=== PATIENT | male | born 1970 | race Caucasian/White ===

== ENCOUNTER 2024-07-30 12:16 | Outpatient (CLI) | payer MEDICARE, SELFPAY ==
--- OUTSIDE RECORDS SUMMARY | 2024-07-30 12:22 | XMS_ITS | Data Portability ---
Author Organization [place] [facility] Address [address] [place] [address] Assessment Encounter Date Assessment Date Assessment LastModified by Organization Details LastModified Time 11/05/2022 11/05/2022 Patient is a pleasant 52 yo male who presents today for intrathecal pain pump refill and reprogram. Patient is currently being managed with Dilaudid 0.28mg/day. Patient denies any side effects from the medication. Patient rates pain a 7 out of 10. I increased the patient's pump concentration today to Dilaudid 3mg/mL. The infusion rate was continued to Dilaudid 0.28mg/day. --- Plan: Patient lives in [place], [place]. He says that he needs to drive more than 2 hours to our clinic. We talked to him about home refill with [facility]. He is interested in this. We will send a referral today to [facility]. If for some reason his insurance won't approve home refill, we can schedule him in [place] or [place] for pump refill. We will see the patient back in the clinic at the next intrathecal refill. Patient has been instructed to contact the clinic with any concerns before the next appointment. This note was dictated using voice recognition software and may contain errors or omissions. [email or web address] Not available 11/05/2022 11:39:52 04/24/2023 04/24/2023 This is a pleasa nt 53-year-old male that presents to clinic today for follow-up on his intrathecal pain pump. We are currently treating patient for degenerative Lumbar vertebral disc and low back pain with lumbar radiculopathy. Patient does have an intrathecal pain pump device. Patient is being managed with hydromorphone at 0.35 mg/day. Patient's intrathecal pain pump device is approximately 6 years old. Patient states that he has Noticed that his intrathecal pain pump device sometimes would not cover his pain. Today he is rating his pain a 5 out of 10. He states that if he has to drive or move for very long periods of times it will cause an increase in his pain. They did do an increase on his intrathecal pain pump at his last home refill. Patient states that hat that has helped. --- Plan: We did interrogate patient's intrathecal pain pump device today we did not make any changes. We believe that patient's intrathecal pain pump device is at its end-of-life. Patient does have a [employer] pain pump device. [employer] did issue a statement saying that their devices could suddenly stop working which could cause a life-threatening condition with patient including seizures and possible . We will submit today for a change out of his intrathecal pain pump device. Risk versus benefits of the procedure was explained to patient. Patient is not on any blood thinners at this time. Patient verbalized understanding agreeable with this plan of care. Patient has been instructed to contact the clinic with any concerns before the next appointment. This note was dictated using voice recognition software and may contain errors or omissions. [email or web address] Not available 04/24/2023 13:10:35 11/04/2023 11/04/2023 Patient is a pleasant 53-year-old male who presents today for 6-month follow-up. Today he rates his pain at 4 out of 10. Patient denies any new trauma or injury. Patient does currently have his intrathecal pump with a daily dose of Dilaudid 0.35 mg/day. He states that it does help however feels like it could use some additional adjustment. Patient states the drive over can obviously aggravate his overall symptoms. Patient is filled by [facility] home refill and states he is scheduled for a refill at the end of this month. Patient does still have his flow[employer]ix pump and states that he has not been given a surgery date to have this replaced. Patient states that he is working fine however they had already discussed about having it changed counts but did state that they were going to wait and do patients that it had the pumps longer and since he was not having any issues. Patient states he is still agreeable to this plan of care. His Anant is [id number]. Patient is prescribed gabapentin from an outside provider. His Anant has been reviewed Patient tolerated his intrathecal increase with no complications and was discharged neurologically intact. With the updated change to his dosage his next refill date is on or before November 27. Patient was counseled that we will see about still planning on replacing his pump however since he is not having any issues with that we will reach out to him at a later date regarding this. Patient is agreeable. Patient will return to clinic in 6 months for reevaluation of symptoms and plan of care. Patient has been instructed to contact the clinic with any concerns before the next appointment. Dr. Ryan has reviewed this note and agrees with this plan of care. This note was dictated using voice recognition software and may contain errors or omissions. [email or web address] Not available 11/04/2023 15:29:50 02/23/2024 02/23/[address] [facility] 54-year-old male who presents today for intrathecal pain pump refill.We are currently treating this patient for degeneration of the lumbar intervertebral disc, low back pain and lumbar radiculopathy.Tolawrence iraheta, patient is rating his pain a 7 out of 10. He states since last visit he has had increasing pain in his low back with radicular symptoms into the bilateral legs. Patient states he has had his Flow[employer] pump for around 6 years, he is thinking he needs to schedule a switch out.We are currently managing this patient with intrathecal Dilaudid 3 mg/mL at a daily rate of 0.42 mg/day. Patient is requesting an increase today. Patient is medically managed with gabapentin 300 mg twice daily, he is prescribed this from an outside clinic. [facility] #[id number], drug screen from 11-04-2023 was reviewed and was appropriate. Patient underwent random urine drug screen here in office today. Plan: Patient tolerated intrathecal pain pump refill well today. He was discharged neurovascularly intact with antalgic gait. He had motor strength of 5 out of 5 in the lower extremities, no gross sensory deficits appreciated. We did increase his intrathecal Dilaudid 3 mg/mL to a daily rate of 0.5 mg/day. We will see patient in office for intrathecal pain pump refill on or before his next refill date of May 21, 2024. Patient would like to be scheduled for intrathecal pain pump change out in [place]. We have sent his contact information to Shannan to have him scheduled. Will follow up on this at his next appointment. We have instructed patient to contact our office if he has any further questions or concerns. [email or web address] Not available 02/23/2024 18:10:40 05/25/2024 05/25/[address] [facility] 54-year-old male that presents today for intrathecal pain pump refill. We are currently treating his patient for degenerative disc disease of lumbar spine with radiculopathy. Today patient is rating his pain a 6 out of 10,This is improvement from his last visit with a pain level of 7 out of 10. Patient denies changes to location or intensity of his pain. He denies any new injury or hospitalization. He is requesting that we increase his pump as the last increase was helpful but he is still having some pain. We are currently managing him with intrathecal Dilaudid 3 mg/mL at a daily rate of 0.42 mg/day. Patient denies any side effects associated with this medication. Again he is requesting an increase. Patient is scheduled for replacement of his nonfunctioning intrathecal pain pump device. He is requesting that this is performed in [place]. [facility] #[id number], drug screen from 02/23/2024 was reviewed and was appropriate. Patient did undergo updated drug screen in office today. A screen and reflex to confirmation was ordered as random testing at random intervals based on medical necessity guidance criteria. Urine drug screen is needed to verify patient's compliance with the pain contract, this will be ordered due to treatments of chronic pain with a potentially abused medication. Plan: I refilled patient's intrathecal pain pump device, he tolerated this procedure well without any complications. Patient was discharged neurovascularly intact with an antalgic gait. Patient had 5/5 motor strength in the lower extremities, no gross sensory deficits appreciated. We did increase his intrathecal Dilaudid 3 mg/mL to a daily rate of 0.55 mg/day. We will see patient back on or before his low alarm date of August 14, 2024.Dr. Ryan has reviewed this chart and agrees with this plan of care. This note was dictated with voice recognition software and may contain errors or omission [email or web address] Not available 06/24/2024 11:30:37 Plan of Treatment Reminders Order Date Submit Date Provider Last Modified By Organization Details Last Modified Time Details Appointments PUMP REFILL 2024 01:30P M CARLITO RIBEIRO Not available Not available Not available Lab None recorded. Referral None recorded. Procedures intrathec al pump refill (PROC) 2024 025 [email or web address] Not available 05/25/2024 13:50:32 intrathec al pump adjustmen t (PROC) 2024 025 [email or web address] Not available 05/25/2024 13:50:50 intrathec al pump refill (PROC) 2023 024 [email or web address] Not available 02/24/2024 12:16:31 intrathec al pump refill (PROC) 2022 023 [email or web address] Not available 11/06/2022 16:10:12 Surgeries replaceme nt of programma ble pump for intrathec al or epidural drug infusion (SURG) 2023 024 [email or web address] Not available 05/08/2023 10:52:04 revision or repositio sandie of tunneled intrathec al or epidural catheter (SURG) 2023 024 [email or web address] Not available 05/08/2023 10:52:05 Imaging None recorded. Medication Orders None recorded. Patient TargetsNo targets recorded. Patient Instructions Encounter Date Encounter Id Patient Instructions Last Modified By Organization Details Last Modified Time 04/24/2023 [id number] back pain: care instructions abux Not available 04/24/2023 22:53:33 learning about relief for back pain abux Not available 04/24/2023 22:53:33 Reason for Referral None Reported. Results Created Date Observation Date Name Description Value Unit Range Abnormal Flag Note LastModifiedBy Organization Detail LastModifiedTime Result Notes None recorded. Problems Name Problem SNOMED Code Status Onset Date Resolution Date Notes Provider Name and Address Organization Details Recorded Time Degeneration of lumbar intervertebral disc 83057465 Active 2019 Armen Ryan MD [address], [address], [place] [facility] 0 14:12:52 Lumbar radiculopathy 105183834 Active 2019 Armen Ryan MD [address], [address], [place] [facility] 0 14:12:53 Low back pain 593465684 Active 2019 Armen Ryan MD [address], [address], [place] [facility] 0 14:12:55 Problem Notes None recorded. Procedures Surgical History Date Name Laterality Status Provider Name and Address Organization Details Recorded Time 5 Pump Refill completed CARLITO RIBEIRO [address] [facility],[address], [address], [place] [facility] 05/25/2024 13:26:06 4 Pump Refill completed CARLITO RIBEIRO [address], [address], [place] [facility] 02/23/2024 15:25:53 4 PUMP ADJUSTMENT completed Katherin Devlin NP [address], [address], [place] [facility] 11/04/2023 15:27:15 3 Pump Refill completed Brett Carvalho [address], [address], [place] [facility] 11/05/2022 11:33:06 3 Pump Refill LENA completed Brett Cravalho [address], [address], [place] [facility] 09/17/2022 11:56:20 3 Pump Refill completed Katherin Devlin NP [address], [address], [place] [facility] 07/23/2022 09:28:49 3 Pump Refill cancelled Troy Gómez [place] [facility] 07/03/2022 15:13:09 3 Pump Refill completed Armen Ryan MD [address], [address], [place] [facility] 05/21/2022 16:21:26 3 Pump Refill cancelled Troy Gómez [place] [facility] 05/06/2022 13:21:48 2 Pump Refill completed Armen Ryan MD [address], [place], [address], [place] [facility] 03/26/2022 23:22:53 2 Pump Refill active Juana Jonestt [place] [facility] 03/11/2022 09:37:20 2 Pump Refill completed Armen Ryan MD [address], [place], [address], [place] [facility] 01/22/2022 15:45:09 2 Pump Refill cancelled Negar Lyons [place] [facility] 01/07/2022 15:39:16 2 Pump Refill completed Armen Ryan MD [address], [place], [address], [place] [facility] 11/13/2021 09:30:43 2 Pump Refill completed Armen Ryan MD [address], [place], [address], [place] [facility] 09/04/2021 11:48:36 2 Pump Refill completed Geri Leigh [place] [facility] 06/26/2021 15:07:31 1 Pump Refill completed Armen Ryan MD [address], [place], [address], [place] [facility] 04/10/2021 16:16:52 1 Pump Refill active Georgie Cam [place] [facility] 04/03/2021 07:57:17 1 Pump Refill completed Armen Ryan MD [address], [place], [address], [place] [facility] 01/23/2021 15:47:18 1 Pump Refill completed Sari Sanz [place] [facility] 11/14/2020 13:06:16 1 Pump Refill completed Anastasia Salas [place] [facility] 08/22/2020 13:26:29 1 Pump Refill completed Anastasia Salas [place] [facility] 05/30/2020 14:13:41 1 Pump Refill completed Vikki Juan Jose [place] [facility] 05/16/2020 14:56:14 0 Pump Refill completed Armen Ryan MD [address], [address], [place] [facility] 04/11/2020 14:11:20 0 Pump Refill completed Armen Rayn MD [address] [facility],[address], [address], [place] [facility] 02/01/2020 15:51:30 Imaging Results None recorded. Procedure Notes None recorded. Medical Equipment None Reported. Allergies No known drug allergies Medications Name Sig Start Date Stop Date Status Note LastModified by Organization Details LastModified Time dilaudid 3 Dispense for intrathec al use 2023 active Not Available Not Available Not Avai lable dilaudid 3 Dispense for intrathec al use 2022 active Not Available Not Available Not Avai lable dilaudid 3 Dispense for intrathec al use 2023 active Not Available Not Available Not Avai lable dilaudid 3 DISPENSE IN 20 ML FOR INTRATHEC AL PUMP INFUSION 2022 active Not Available Not Available Not Avai lable dilaudid 3 Dispense for intrathec al use 2023 active Not Available Not Available Not Avai lable dilaudid 3 Dispense for intrathec al use 2023 active Not Available Not Available Not Avai lable dilaudid 3 Dispense for intrathec al use 2024 active Not Available Not Available Not Avai lable celecoxib 200 mg capsule TAKE 1 CAPSULE BY MOUTH DAILY 04/24 completed Not Available Not Available Not Available metformin 500 mg tablet TAKE 1 TABLET BY MOUTH TWICE DAILY 01/27 completed Not Available Not Available Not Available prednisone 10 mg tablet 05/16 completed Not Available Not Available Not Available atorvastati n 20 mg tablet TAKE 1 TABLET BY MOUTH AT BEDTIME active Not Available Not Available No t Available azithromyci n 250 mg tablet TK 2 TS PO ON DAY 1, THEN TK 1 T PO D FOR 4 DAYS 01/27 completed Not Available Not Available Not Available ondansetron HCl 4 mg tablet TAKE 1 TABLET BY MOUTH THREE TIMES DAILY NEEDED FOR NAUSEA 01/27 completed Not Available Not Available Not Available prednisone 20 mg tablet TAKE 1 TABLET BY MOUTH EVERY DAY active Not Available Not Available No t Available sulfamethox azole 800 mg-trimetho prim 160 mg tablet TAKE 1 TABLET BY MOUTH TWICE DAILY FOR 10 DAYS 11/03 completed Not Available Not Available Not Available peg-electro lyte solution 420 gram oral solution active Not Available Not Available Not Available prednisone 10 mg tablets in a dose pack FOLLOW PACKAGE DIRECTION S 01/27 completed Not Available Not Available Not Available amoxicillin 875 mg tablet TAKE 1 TABLET BY MOUTH TWICE DAILY FOR 10 DAYS active Not Available Not Available No t Available pravastatin 10 mg tablet TAKE 1 TABLET BY MOUTH AT BEDTIME active Not Available Not Available No t Available tamsulosin 0.4 mg capsule TAKE 1 CAPSULE BY MOUTH EVERY DAY active Not Available Not Available No t Available cephalexin 500 mg capsule active Not Available Not Available Not Available gabapentin 300 mg capsule active Not Available Not Available Not Available ergocalcife rol (vitamin D2) 1,250 mcg (50,000 unit) capsule TAKE 1 CAPSULE BY MOUTH EVERY WEEK active Not Available Not Available No t Available methylpredn isolone 4 mg tablets in a dose pack FOLLOW PACKAGE DIRECTION S 11/05 completed Not Available Not Available Not Available ondansetron 4 mg disintegrat ing tablet DISSOLVE 1 TABLET ON THE TONGUE TWICE DAILY active Not Available Not Available No t Available fluticasone propionate 50 mcg/actuati on nasal spray,suspe nsion SHAKE LIQUID AND USE 2 SPRAYS IN EACH NOSTRIL TWICE DAILY active Not Available Not Available No t Available amoxicillin 875 mg-potassiu m clavulanate 125 mg tablet TAKE 1 TABLET BY MOUTH TWICE DAILY FOR 10 DAYS active Not Available Not Available No t Available metformin ER 750 mg tablet,exte nded release 24 hr TAKE 1 TABLET BY MOUTH EVERY DAY active Not Available Not Available No t Available Loratadine- D 10 mg-240 mg tablet,exte nded release 24 hr TAKE 1 TABLET BY MOUTH DAILY. active Not Available Not Available No t Available rosuvastati n 5 mg tablet TAKE 1 TABLET BY MOUTH AT BEDTIME active Not Available Not Available No t Available rosuvastati n 10 mg tablet active Not Available Not Available Not Available ibuprofen active Not Available Not Birgit ilable Not Available levocetiriz ine 5 mg tablet active Not Available Not Available Not Available TRUEplus Lancets 33 gauge USE TO CHECK BLOOD SUGAR TWICE DAILY 05/16 completed Not Available Not Available Not Available Super Thin Lancets 28 gauge USE 1 DEVICE TWICE DAILY. active Not Available Not Available No t Available True Metrix Glucose Test Strip USE TO CHECK BLOOD SUGAR TWICE DAILY active Not Available Not Available No t Available True Metrix Glucose Meter USE TO CHECK BLOOD SUGAR TWICE DAILY 05/16 completed Not Available Not Available Not Available Vitals Date Recorded Body height Body mass index (BMI) Body weight Oxygen saturation Oxygen saturation in Arterial blood by Pulse oximetry Pain severity - 0-10 verbal numeric rating [Score] - Reported Heart rate Systolic blood pressure Diastolic blood pressure Provider Name and Address Organization Details Last Updated DateTime 3 180.34 cm 18.7 kg/m2 68466.3 8 g 98 % 98 % 6 60 /min 128 mm[Hg] 84 mm[Hg] STEVO VIERA [place] [facility] 3 10:09:59 Date Recorded Body height Heart rate Body mass index (BMI) Body weight Oxygen saturation Oxygen saturation in Arterial blood by Pulse oximetry Pain severity - 0-10 verbal numeric rating [Score] - Reported Systolic blood pressure Diastolic blood pressure Provider Name and Address Organization Details Last Updated DateTime 4 180.34 cm 62 /min 18.7 kg/m2 68312.3 8 g 98 % 98 % 4 126 mm[Hg] 82 mm[Hg] STEVO VIERA [place] [facility] 4 14:16:17 Date Recorded Body height Oxygen saturation Oxygen saturation in Arterial blood by Pulse oximetry Heart rate Body mass index (BMI) Body weight Pain severity - 0-10 verbal numeric rating [Score] - Reported Systolic blood pressure Diastolic blood pressure Provider Name and Address Organization Details Last Updated DateTime 4 180.34 cm 98 % 98 % 66 /min 18.7 kg/m2 22283.3 8 g 7 126 mm[Hg] 82 mm[Hg] STEVO VIERA [place] [facility] 4 14:20:03 Date Recorded Body height Body mass index (BMI) Body weight Heart rate Oxygen saturation Oxygen saturation in Arterial blood by Pulse oximetry Pain severity - 0-10 verbal numeric rating [Score] - Reported Systolic blood pressure Diastolic blood pressure Provider Name and Address Organization Details Last Updated DateTime 5 180.34 cm 18.7 kg/m2 74111.3 8 g 68 /min 98 % 98 % 6 126 mm[Hg] 82 mm[Hg] STEVO VIERA [place] [facility] 5 13:04:03 Social History Question Answer Notes LastModified by Organizat ion Details LastModified Time Tobacco Smoking Status Current Every Day Smoker Juana robles [place] - [facility] 05/30/2020 13:30:49 Do You Have An Advance Directive? Yes Information not available 05/30/2020 What Is Your Level Of Alcohol Consumption? None Information not available 05/30/2020 Auto Related Injury? No Information not available 05/30/2020 What Is Your Level Of Caffeine Consumption? Heavy Information not available 05/30/2020 How Much Tobacco Do You Chew? None Information not available 05/30/2020 In The 14 Days Before Symptom Onset, Have You Had Close Contact With A Laboratory-confir med COVID-19 While That Case Was Ill? No [email or web address] Information not available 11/04/2023 In The 14 Days Before Symptom Onset, Have You Had Close Contact With A Person Who Is Under Investigation For COVID-19 While That Person Was Ill? No [email or web address] Information not available 11/04/2023 Have You Been To An Area Known To Be High Risk For COVID-19? No [email or web address] Information not available 11/04/2023 Are You Currently Employed? No Information not available 05/30/2020 What Type Of Diet Are You Following? REGULAR Information not available 05/30/2020 Which Illicit Or Recreational Drugs Have You Used? None Information not available 05/30/2020 Do You Or Have You Ever Used E-cigarettes Or Vape? Never Used Electronic Cigarettes Information not available 05/30/2020 Which Of Your Hands Is Dominant? Right Information not available 05/30/2020 Live Alone Or With Others? With Others Information not available 05/30/2020 What Was The Date Of Your Most Recent Tobacco Screening? 02/23/2024 [email or web address] Information not available 02/23/2024 At What Age Did You Start Smoking Tobacco? 48 Information not available 05/30/2020 Do You Or Have You Ever Used Smokeless Tobacco? Never Used Smokeless Tobacco Information not available 05/30/2020 How Much Tobacco Do You Smoke? 2 PPD Information not available 05/30/2020 General Stress Level Medium Information not available 05/30/2020 Do You Use Any Illicit Or Recreational Drugs? No [email or web address] Information not available 11/04/2023 How Many Years Have You Smoked Tobacco? 2 Information not available 05/30/2020 Work Related Injury? No Information not available 05/30/2020 Sex: Unknown Functional Status Question Answer Note LastModified by Organization D etails LastModified Time What is your exercise level? None Information not available 05/30/2020 Mental Status None recorded. Family History Relationship Description Onset Age of this Age Resolved Age Notes LastModified by Organization Details LastModified Time Father No current problems or disability Not available 05/30 13:28:52 Mother No current problems or disability Not available 05/30 13:28:52 Medical History Condition Response Coronary Artery Disease N Gout N Hernia N Head Trauma/Injury N Thyroid Problems N Depression N COPD N Anemia N Heart Attack ([place]) N Ulcers Y Diabetes Y Anxiety Disorder N Bleeding Disorder N Arthritis N Tuberculosis N AIDS/HIV N Acid Reflux (GERD) Y Cancer N Stroke N Asthma N Substance Abuse N Back Injury N High Cholesterol N Hepatitis N Liver Disease N Heart Disease N Headaches N Fibromyalgia N Hypertension N Osteoporosis N Kidney Disease N Past Encounters Encounter ID Performer Location Encounter Start Date Encounter Closed Date Diagnosis/Indication Diagnosis SNOMED-CT Code Diagnosis ICD10 Code Diagnosis Note [id number] Armen Ryan MD [place] [facility] [address] [facility] [address] [place] [address] 02/01/2020 14:08:01 02/08/2020 21:20:11 Degeneration of lumbar intervertebral disc 87630240 M51.36 [id number] Armen Ryan MD [place] [facility] [address] [facility],[address] 6 04/11/2020 09:49:36 04/11/2020 14:24:31 Degeneration of lumbar intervertebral disc 22157993 M51.36 Lumbar radiculopathy 128 456117 M54.16 Low back pain 458308507 M54.5 [id number] Vikki Ingram [place] [facility] [address] [facility],[place] [address] 05/16/2020 13:04:23 05/16/2020 14:20:29 Degeneration of lumbar intervertebral disc 61711053 M51.36 Lumbar radiculopathy 128 977345 M54.16 Low back pain [id number] M54.5 455 Anastasia Sharp [facility] Office 101 [facility],[place] [address] 6 05/30/2020 12:38:19 05/31/2020 14:35:19 Degeneration of lumbar intervertebral disc 14640246 M51.36 Lumbar radiculopathy 128 [id number] M54.16 Low back pain 603100693 M54.5 749 Anastasia Salas [place] [facility] 101 [facility],[place] [address] 6 08/22/2020 13:00:02 08/22/2020 15:30:01 Degeneration of lumbar intervertebral disc 85407726 M51.36 Low back pain [id number] M54.5 Lumbar radiculopathy 128 883930 M54.16 1089 Geri Leigh [place] [facility] 101 [facility],[address] 6 11/14/2020 12:35:08 11/14/2020 15:28:57 Lumbar radiculopathy [id number] M54.16 1506 Armen Ryan MD [place] [facility] 101 [facility],[address] 6 01/23/2021 12:55:55 01/23/2021 14:47:37 Degeneration of lumbar intervertebral disc 26916468 M51.36 Low back pain 634946729 M54.50 Lumbar radiculopathy 128 [id number] M54.16 1982 Armen Ryan MD [place] [facility] 101 [facility],[place] [address] [place] [id number] 6 04/10/2021 13:01:47 04/10/2021 13:25:16 Degeneration of lumbar intervertebral disc 37788722 M51.36 Low back pain [id number] M54.50 Lumbar radiculopathy 128 956868 M54.16 2535 Geri Leigh [place] [facility] 101 [facility],[place] [address] [place] [id number] 6 06/26/2021 13:47:26 06/26/2021 14:47:42 Degeneration of lumbar intervertebral disc 97798367 M51.36 Low back pain 794638850 M54.50 Lumbar radiculopathy 128 697836 M54.16 4564 Armen Ryan MD [place] [facility] 101 [facility],[place] [address] 09/04/2021 08:51:50 09/04/2021 09:37:06 Degeneration of lumbar intervertebral disc 82753859 M51.36 Low back pain 643032893 M54.50 Lumbar radiculopathy 128 [id number] M54.16 6401 Armen Ryan MD [place] [facility] [address] [place] [address],[place] [id number] 6 11/13/2021 08:03:12 11/13/2021 09:00:15 Degeneration of lumbar intervertebral disc 77438064 M51.36 Low back pain 939531944 M54.50 Lumbar radiculopathy 128 901372 M54.16 8284 Armen Ryan MD [place] [facility] [address] [place] [address],[facility] [address] [place] [id number] 6 01/22/2022 13:06:13 01/22/2022 14:57:32 Lumbar radiculopathy 394379518 M54.16 Degenerati on of lumbar intervertebral disc 15886225 M51.36 Low back pain 834404281 M54.50 9813 Armen Ryan MD [place] [facility] 101 [facility],[place] [phone] 6 03/26/2022 11:47:56 03/26/2022 13:20:37 Degeneration of lumbar intervertebral disc 25851261 M51.36 Low back pain 473827968 M54.50 Lumbar radiculopathy 128 711534 M54.16 27605 Armen Ryan MD [place] [facility] [address] [place] [address],[place] [address] 05/21/2022 13:37:14 05/21/2022 15:37:38 Lumbar radiculopathy 893296773 M54.16 Degenerati on of lumbar intervertebral disc 64518032 M51.36 Low back pain 277093773 M54.50 64989 Armen Ryan MD [place] [facility] [address] [place] [address] 6 07/23/2022 08:59:36 07/23/2022 09:25:34 Lumbar radiculopathy 074273943 M54.16 Degenerati on of lumbar intervertebral disc 32545847 M51.36 Low back pain 706457731 M54.50 78861 Brett Carvalho [place] [facility] [address] [place] [address],[place] [address] 09/17/2022 11:18:16 09/17/2022 11:59:20 Degeneration of lumbar intervertebral disc 39112849 M51.36 Low back pain 557499454 M54.50 Lumbar radiculopathy 128 692436 M54.16 60048 Brett Carvalho [address] R[place] [address] [place] [address] 11/05/2022 09:58:28 11/05/2022 10:31:43 Degeneration of lumbar intervertebral disc 82284371 M51.36 Low back pain 790708079 M54.50 Lumbar radiculopathy 128 033835 M54.16 21091 Armen Ryan MD [address] [place] [address] 04/24/2023 09:41:59 04/24/2023 11:24:30 Degeneration of lumbar intervertebral disc 57377959 M51.36 Low back pain 730855456 M54.50 Lumbar radiculopathy 128 876148 M54.16 70663 Katherin Devlin NP [address] [place] [place] [address] 3 11/04/2023 14:10:01 11/04/2023 15:08:33 Lumbar radiculopathy 358690818 M54.16 Degenerati on of lumbar intervertebral disc 03038764 M51.36 Low back pain 822822228 M54.50 54627 Armen Ryan MD [address] [place] [place] [address] 3 02/23/2024 14:02:27 02/23/2024 14:46:13 Lumbar radiculopathy 733472685 M54.16 Degenerati on of lumbar intervertebral disc 12133318 M51.369 Low back pain 344801928 M54.50 47303 Armen Ryan MD [address] [place] [place] [address] 3 05/25/2024 12:59:24 05/25/2024 13:23:36 Lumbar radiculopathy 843540766 M54.16 Degenerati on of lumbar intervertebral disc 00385741 M51.369 Low back pain 924629883 M54.50 Long-term drug therapy 862550006 Z79.891 Continuous opioid dependence [id number] F11.20 Health Concerns Section Related Observation LastModified by Organization Detai ls LastModified Time None Recorded Concern Status LastModified by Organization Details LastModified Time None Recorded Advance Directives Directive Y: Payers Encounter Date Sequence Insurance Name Policy Number Policy Chaudhry Covered Member ID Chaudhry Member ID Guarantor Name 11/05/2022 1 [employer] (MEDICARE REPLACEMENT/A DVANTAGE - PPO) Juan Antonio E Higinio [id number] Juan Antonio Kouns 04/24/2023 1 [employer] (MEDICARE REPLACEMENT/A DVANTAGE - PPO) Juan Antonio Sylvester [id number] Juan Antonio Kouns 11/04/2023 1 [employer] (MEDICARE REPLACEMENT/A DVANTAGE - PPO) Juan Antonio Sylvester [id number] Juan Antonio Kouns 02/23/2024 1 [employer] (MEDICARE REPLACEMENT/A DVANTAGE - PPO) uJan Antonio Sylvester [id number] Juan Antonio Sylvester 05/25/2024 1 [employer] (MEDICARE REPLACEMENT/A DVANTAGE - PPO) Juan Antonio Sylvester [id number] Juan Antonio Sylvester Notes Date Note Type Note Provider Name and Address Organization Details Recorded Time 11/05/2022 text/html Pt in clinic tod ay for a Pump rfPt pain score is __/10 Brett Carvalho [address], [address], [place] [facility] 11/05/2022 11:40:12 04/24/2023 text/html Pt in clinic for a 6 month f/uPain score is 5/[address] his pain is usually around 3/10the increase he had to his pump last time has helped with his pain Armen Ryan MD [address], [address], [place] [facility] 04/24/2023 22:53:36 11/04/2023 text/html Back PainReporte d bypatient.Location: lumbar;pain radiating to the legs Quality:sharp;achin g;throbbing;constan t Severity:pain level 4/10;mild (1-4) Duration:chronic Context:trauma Aggravating Factors:movement/po sitioning; twisting; flexing back; extending back; lifting; housework; walking; standing; sitting Associated Symptoms:no fever; no weak limbs; no incontinence; no shortness of breath; no unintentional weight loss; no chills; no night sweats; no gait instability; no bowel/bladder symptoms; no recent increase in stress;numbness of the legs/feet;tingling Pt in clinic for a 6 month f/u Katherin Devlin NP [address], [address], [place] [facility] 11/04/2023 15:30:04 02/23/2024 text/html Back PainReporte d bypatient.Location: lumbar;pain radiating to the legs Quality:sharp;achin g;throbbing;constan t Severity:pain level 7/10;moderate (5-7) Duration:chronic Context:trauma Aggravating Factors:movement/po sitioning; twisting; flexing back; extending back; lifting; housework; walking; standing; sitting Associated Symptoms:no fever; no weak limbs; no incontinence; no shortness of breath; no unintentional weight loss; no chills; no night sweats; no gait instability; no bowel/bladder symptoms; no recent increase in stress;numbness of the legs/feet;tingling Armen Ryan MD [address], [address], [place] - [facility] 02/23/2024 18:11:14 05/25/2024 text/html Back PainReporte d bypatient.Location: lumbar;pain radiating to the legs Quality:sharp;achin g;throbbing;constan t Severity:pain level 6/10;moderate (5-7) Duration:chronic Context:trauma Aggravating Factors:movement/po sitioning; twisting; flexing back; extending back; lifting; housework; walking; standing; sitting Associated Symptoms:no fever; no weak limbs; no incontinence; no shortness of breath; no unintentional weight loss; no chills; no night sweats; no gait instability; no bowel/bladder symptoms; no recent increase in stress;numbness of the legs/feet;tingling Armen Ryan MD [address], [address], [place] - [facility] 06/24/2024 11:32:17
--- NOTE | 2024-07-30 12:52 | ECG_ITS ---
APPROVED REPORT Exam: Resting ECG HR:62 bpm ECG Measurements Heart Rate 62 AXES AK 203 P 26 QRSd 98 QRS 50 QT 457 T 159 QTc 462 Conclusion SINUS RHYTHM INCOMPLETE RIGHT BUNDLE BRANCH BLOCK [90+ ms QRS DURATION, TERMINAL R IN V1/V2, 40+ ms S IN I/aVL/V4/V5/V6] MODERATE T-WAVE ABNORMALITY, CONSIDER ANTEROLATERAL ISCHEMIA [-0.1+ mV T-WAVE IN V3-V6] ABNORMAL ECG UNCONFIRMED REPORT Electronically signed by : Beau Arevalo MD 08/03/2024 08:49:44
[2024-07-30 12:58] VITALS: BMI 33.2
[2024-07-30 13:09] LABS: Basophils # 0.1 K/mm3 (0-0.2); Basophils % 0.9 % (0.1-2.0); Eosinophils # 0.2 K/mm3 (0.0-0.4); Eosinophils % 3.1 % (0.1-12.0); Hematocrit 42.2 % (42.0-52.0); Hemoglobin 14.4 g/dL (14.1-18.0); Lymphocytes # 2.8 K/mm3 (0.7-4.5); Mean Corpuscular HGB Conc 34.1 g/dL (31.8-35.4); Mean Corpuscular Hemoglobin 29.8 pg (27.0-31.2); Mean Corpuscular Volume 87.4 fl (80-94); Mean Platelet Volume 9.8 fl (7.4-10.4); Monocytes # 0.5 K/mm3 (0.1-1.0); Neutrophils # 4.2 K/mm3 (1.8-7.8); Neutrophils % 53.6 % (37.0-80.0); Nucleated Red Blood Cells # 0 10^3/uL; Nucleated Red Blood Cells % 0 %; Platelet Count 294 K/mm3 (142-424); Red Blood Count 4.83 M/mm3 (4.60-6.20); Red Cell Distribution Width 11.9 % (11.5-17.5); Red Cell Distribution Width-SD 38.4 fL; White Blood Count 7.9 K/mm3 (4.8-10.8)
[2024-07-30 13:15] LABS: Chloride 100 mmol/L (98-107); Sodium 136 mmol/L (136-145)
[2024-07-30 13:16] LABS: Potassium 4.8 mmoL/L (3.5-5.1)
[2024-07-30 13:18] LABS: Blood Urea Nitrogen 20 mg/dl (9-20); Creatinine Clearance Estimated 140 mL/min (50-200); Estimated Glomerular Filt Rate 87 ml/min (>60); GFR (African American) 106 ML/MIN (>60)
[2024-07-30 13:19] LABS: Anion Gap 12.8 mEq/L (5-15); Calcium 8.9 mg/dl (8.4-10.2); Carbon Dioxide 28 mmol/L (22.0-30.0); Glucose 175 mg/dl (74-100)
[2024-07-30 14:09] LABS: Hemoglobin A1C 9.8 % (4.0-6.0)
== END 2024-07-30 23:59 | disposition home or self-care (01) ==
LOC: PREOP 12:20
PROVIDERS: Visit Provider Anesthesiology
DX: Z01.812 Encounter for preprocedural laboratory examination (principal); I45.19 Other right bundle-branch block; R94.31 Abnormal electrocardiogram [ECG] [EKG]
CPT/HCPCS: 80048; 83036; 85025; 93005

== ENCOUNTER 2024-08-06 06:51 | Day surgery (SDC) | payer MEDICARE, SELFPAY ==
--- NOTE | 2024-08-02 11:33 | PC.NURSE ---
Reviewed EKG w/ R. ALE Phillips on 07/30, ok to proceed with surgery but recommend pt follow up w/ PMD or Cardiology for further evaluation. Attempted to call pt and notify. No answer, unable to leave VM.
[2024-08-06 09:28] VITALS: BMI 33.2
[2024-08-06] MEDS: LACTATED RINGERS 1000ML 1,000 ML 50 ML IV (09:32)
[2024-08-06 09:34] VITALS: BP 134/75; PULSE 68; RESP 18; TEMP 36.2; O2SAT 98
[2024-08-06] MEDS: VANCOMYCIN HCL 2,000 MG in 0.9 % SODIUM CHLORIDE 250 ML 125 MG IV (09:51)
--- NOTE | 2024-08-06 10:07 | EXP.ANES.CKL ---
[facility] Disclaimer: The information contained in this section may have been updated after the patient was seen, as this information can be updated by other users. Medical History HLD (hyperlipidemia) Degenerative disc disease Lumbar radiculopathy GERD (gastroesophageal reflux disease) Diabetes Surgical History History of back surgery Family History Other No significant family history Social History Smoking Status: Current every day smoker alcohol intake: never substance use type: denies use current occupational status: disabled Travel in the last 8 weeks: None [facility] Anesthesia Checklist Patient Identification Patient Identification: Arm Band Structural Data Admitted From: Home Planned Operative Procedure/s: Pain Pump Explant + Implant Consent for Planned Operative Procedure(s) Verified: Yes Verified Documents: Surgical Consent and History and Physical NPO Status Verified Time NPO: 00:00 Additional verifications Anesthesia Reactions: No Hx Blood Transfusions: No Blood Transfusion Reaction: No Airway Assessment Mallampati Score:: Class II C-Spine Mobility Assessed: Yes TMJ Mobility Assessed: Yes Dentition: Good Dentition Neurological Assessment Level of Consciousness: Awake, Alert and Appropriate Anesthesia Plan Anesthesia Risk discussed: Yes Anesthesia Plan: Verified ASA Class: II Anesthesia Type: MAC
--- NOTE | 2024-08-06 10:25 | EXP.ANES.I ---
[facility] Anesthesia Record Part I Anesthesia Record I Intake, IV Amount: 700 Hydration: Adequate Estimated blood loss (mL): 0 Urine output (mL): 100 Blood Products used (#): none Blood Pressure: 146/98 SaO2: 93 Pulse Rate: 76 Airway Patency: Patent Respiratory Rate: 14 Temperature: 97.0 F Patient is:: Oral/Nasal airway, Stable and Somnolent Stable to PACU at:: 10:21
[2024-08-06 10:26] VITALS: BP 146/98; PULSE 76; RESP 14; TEMP 36.1; O2SAT 93
[2024-08-06] MEDS: GENTAMICIN 80 MG/2 ML VIAL (10:58)
[2024-08-06] MEDS: SODIUM CHLORIDE 0.9% 20ML VIAL 40 ML IV (10:59)
[2024-08-06] MEDS: LIDOCAINE 1% W/EPI 1:100,000 20ML VIAL 20 ML (10:59)
[2024-08-06 11:29] VITALS: BP 133/76; PULSE 74; RESP 16; TEMP 36.6; O2SAT 97
--- NOTE | 2024-08-06 11:42 | P.OP_ITS ---
Date of procedure: 08/06/24 Pre-op Diagnosis:: Nonfunctioning pain pump system Post-op Diagnosis:: Same Procedure performed:: Replacement pain pump system with new tunneled intrathecal catheter and pain pump generator replacement Surgeon:: Armen Ryan MD DIRECTOR WORKERS COMPENSATION:: Other ([place]) Anesthesia: MAC Estimated blood loss (mL): 5 Clinical Note:: This patient is a pleasant 54-year-old white male who has a nonfunctioning intrathecal pain pump system. We are replacing his pain pump system today. Will place a new tunneled intrathecal catheter and pain pump generator today. Operative findings:: None Operative note:: Informed consent was obtained risk and benefits of the procedure were explained to the patient. The patient was taken to the operating room placed prone on the procedure table. He was prepped and draped in sterile fashion. The skin and subcutaneous tissues overlying the pain pump generator were anesthetized using lidocaine. I made an incision dissected out the pain pump generator. I disconnected the catheter. I tied off with 0 silk ties x 3. C-arm fluoroscopy was then used to view the lumbar spine. The skin and subcutaneous tissues adjacent to the L4-L5 interspace were anesthetized using lidocaine. I made incision dissected down to the lumbar paraspinous fascia. A 17-gauge spinal needle was inserted and advanced into the L4-5 interspace until clear CSF was obtained. After this intrathecal catheter was inserted and advanced very easily to the T8 vertebral body. The catheter was found to be in good position. It was posterior and midline. The stylette of the catheter and the needle were withdrawn. The catheter was secured to the fascia with an anchor device and 2-0 Prolene. I filled the pump with 20 mL of intrathecal hydromorphone 3 mg/mL. I tunneled the catheter from the back to the pump pocket attached catheter to the pump. We were able to freely resolve clear CSF through the sideport. The pump is in place in the pocket with an antibiotic pouch. Both incisions were closed with 2-0 Vicryl followed by 4-0 nylon and chaitanya. Pump was interrogated and started at 0.55 mg/day. PTM boluses were 0.05 mg up to 6 times a day with a 4-hour lockout Patient tolerated the procedure well with no complications. Patient was discharged home neurologic intact with good relief of pain symptoms. Plan and disposition: Will follow-up with this patient in 1 week for wound check and reprogramming. Will follow-up in 2 to 3 weeks for suture and staple removal. Condition: stable Disposition: PACU Complications:: None
[2024-08-06 11:44] VITALS: BP 135/67; PULSE 65; RESP 16; O2SAT 95
[2024-08-06 11:53] VITALS: BP 123/69; BP 136/74; PULSE 63; PULSE 71; RESP 16; O2SAT 95; O2SAT 98
--- NOTE | 2024-08-06 11:54 | SUR.PHASEII ---
1129--pt to post op. Vancomycin continues to infuse w/o difficulty. Rep @ bs along with pt . FABIAN.
--- NOTE | 2024-08-06 11:56 | SUR.PHASEI ---
Scopolamine patch noted behind right ear
[2024-08-06 12:30] VITALS: BP 139/44; PULSE 65; RESP 18; O2SAT 96
[2024-08-06 14:52] LABS: POC Glucose,Bedside 215 (70-110)
== END 2024-08-06 12:30 | disposition home or self-care (01) ==
PROVIDERS: Visit Provider Anesthesiology
DX: T85.695A Other mechanical complication of other nervous system device, implant or graft, initial encounter (principal); E11.9 Type 2 diabetes mellitus without complications; E78.5 Hyperlipidemia, unspecified; F17.200 Nicotine dependence, unspecified, uncomplicated; Z79.84 Long term (current) use of oral hypoglycemic drugs; Z79.899 Other long term (current) drug therapy
CPT/HCPCS: 62355; 82962; 96374; C1755; C1772; J1580; J2003; J2004; J2250; J2704; J3010; J3370; J7050; J7120

== ENCOUNTER 2024-08-16 14:46 | Outpatient (POV) | payer MEDICARE, SELFPAY ==
[2024-08-16 15:14] VITALS: BP 118/69; PULSE 63; RESP 18; O2SAT 94; BMI 32.1
--- NOTE | 2024-08-16 15:22 | EXP.PAIN.SOA ---
[facility] Disclaimer: The information contained in this section may have been updated after the patient was seen, as this information can be updated by other users. Medical History (Updated 08/16/24 @ 15:23 by Katherin Devlin APRN) HLD (hyperlipidemia) Degenerative disc disease Lumbar radiculopathy GERD (gastroesophageal reflux disease) Diabetes Surgical History History of back surgery Family History Other No significant family history Social History (Updated 08/06/24 @ 10:08 by Mata Phillips CRNA) Smoking Status: Current every day smoker alcohol intake: never substance use type: denies use current occupational status: disabled Travel in the last 8 weeks: None PM Subjective & Objective Subjective Subjective:: Patient is a pleasant 54-year-old male who presents today for 1 week postop of intrathecal pump replacement. Today he rates his pain a 4 out of 10. He denies any issues following having this procedure done. Patient states that it is working well however does make mention that his PTM device is not holding charge. Patient is currently managed with Dilaudid 3 mg/mL with a daily dose of 0.5491 mg/day. He denies any side effects. His Anant has been reviewed and is appropriate. Review of Systems: General: No recent weight changes, no fever, no sleep disturbances Respiratory: No cough, no shortness of air, no recurring pulmonary infections Cardiovascular/peripheral vascular: No chest pain, no palpitations, no edema, no shortness of breath Gastrointestinal: No new onset incontinence, normal bowel movements reported Genitourinary: No new onset incontinence Musculoskeletal: Chronic back pain Psychiatric: [Normal mood/affect] Neurological: [Denies weakness in extremities], [denies balance issues] Pain at rest (0-10 scale): 4 Objective Objective:: Physical Exam: General: Alert and oriented x3, no acute distress, pleasant and cooperative Lungs: Respirations even and unlabored, symmetrical chest expansion Eyes: PERRL Musculoskeletal: Flexion and extension of lumbar [spine] somewhat guarded secondary to pain, [antalgic gait noted] Neurological: Speech clear, no gross sensory deficit Skin: Incision sites are clean, dry, well-approximated with no erythema noted and sutures and chaitanya intact Has patient had previous pain injection?: No Conservative treatment options previously tried: Home exercise plan Length of treatment: Longer than 12 weeks Meds Home Medications and Allergies Home Medications ?Medication ?Instructions ?Recorded ?Confirmed ?Type gabapentin 300 mg capsule 300 mg PO DAILY 07/30/24 08/06/24 History levocetirizine 5 mg tablet 5 mg PO DAILY 07/30/24 08/06/24 History metformin 750 mg tablet,extended 750 mg PO DAILY Diabetes 07/30/24 08/06/24 History release 24 hr rosuvastatin 10 mg tablet 10 mg PO DAILY Cholesterol 07/30/24 08/06/24 History sulfamethoxazole 800 1 tab PO BID #14 tabs 08/06/24 Rx mg-trimethoprim 160 mg tablet (Bactrim DS) New Prescriptions to Start Prescriptions: Allergies Allergy/AdvReac Type Severity Reaction Status Date / Time No Known Allergies Allergy Verified 08/06/24 09:31 Assessment and Plan *Assessment and plan (1) Degenerative disc disease: Status: Acute Category: Medical (2) Lumbar radiculopathy: Status: Acute Category: Medical Code(s): M54.16 - Radiculopathy, lumbar region Plan Patient is doing well following his pump replacement and does not require any additional adjustments at today's visit. He was counseled to continue his postop restrictions the full 6 weeks including minimal bending lifting and twisting, no submerging in water until his incision is fully healed and to continue to use his abdominal binder to prevent seroma formation. Patient knowledges understanding and agrees with this plan of care. Patient was a client there from our [place] location however he is requesting to be seen here at our office from here on out. I did discuss with the patient that we have no problems with this. Patient was also reviewed over his PTM device and that it is more like a cell phone and that you do have to charge it continuously as the flow[employer]ix did last much longer between charges. Patient will return to clinic in 2 weeks for reevaluation of symptoms and suture and staple removal. Patient will return to clinic on or before their next intrathecal refill date. We will see the patient back in the clinic at the next intrathecal refill. Patient has been instructed to contact the clinic with any concerns before the next appointment. Dr. Ryan has reviewed this note and agrees with this plan of care. This note was dictated using voice recognition software and make contain errors or omissions. -- It Is medically necessary for this patient to continue to have their intrathecal pump refilled at regular intervals. This patient had an intrathecal pain pump implanted after meeting criteria of chronic intractable pain for greater than 3 months and failing conservative treatments. Patient has committed and been compliant to the treatment plan and all planned follow up care. Since implantation of the intrathecal pain pump, the patient has had decreased pain and been more functional. Oral medications have been reduced including intake of oral opioids. Patient continues to do well with intrathecal therapy with decrease in pain symptoms and increase in functional status. Stopping intrathecal medications can lead to life threatening withdrawal, seizures, cardiac arrest, severe pain, and possible . Pumps that are not refilled at regular intervals can be damages and cause and need for replacement. We continually titrate dose and concentration to optimize pain relief and function. We are limited in concentration for certain drugs to safely deliver medications through the pump and stay within the recommendations from the Polyanalges[employer] Consensus Committee Guidelines. Depending on dose and concentration these pumps may need to be refilled sooner than 3 months as we titrate. A UDS is needed to verify patient's compliance with our office pain contract. This is ordered based off specific treatments related to chronic pain with the potential to abuse certain medications.
== END 2024-08-16 23:59 | disposition home or self-care (01) ==
LOC: SC.PAIN 14:47
PROVIDERS: Visit Provider Nurse Practitioner Family
DX: M54.16 Radiculopathy, lumbar region (principal); F17.200 Nicotine dependence, unspecified, uncomplicated
CPT/HCPCS: 99212; G0463

== ENCOUNTER 2024-08-30 12:59 | Outpatient (POV) | payer MEDICARE, SELFPAY ==
[2024-08-30 13:09] VITALS: BP 140/70; PULSE 68; RESP 14; O2SAT 98; BMI 32.1
--- NOTE | 2024-08-30 14:12 | EXP.PAIN.PRO ---
Procedure Date: 08/30/24 Time: 13:22 Anesthesiologist:: Katherin Devlin APRN Complications:: None Pre-procedure Diagnosis:: Degenerative disc disease of lumbar spine with lumbar radiculopathy symptoms Post-procedure Diagnosis:: Same Indications for Procedure:: Patient is a pleasant 54-year-old male who presents today for intrathecal adjustments and reprogramming. Today he rates his pain a 4 out of 10. He denies any new trauma or injury. He does state that his pump is still working well but feels like it could use additional adjustment. He is currently managed with Dilaudid 3 mg/mL with a daily dose of 0.5491 mg/day. He denies any side effects. Patient is also presenting today to have his sutures and chaitanya removed. He is prescribed gabapentin from an outside provider. His Anant has been reviewed and is appropriate. Physical Exam: General: Alert and oriented x3, no acute distress, pleasant and cooperative Lungs: Respirations even and unlabored, symmetrical chest expansion Eyes: PERRL Musculoskeletal: Flexion and extension of lumbar [spine] somewhat guarded secondary to pain, [antalgic gait noted] Neurological: Speech clear, no gross sensory deficit Procedure Details:: Informed consent was obtained and the risk and benefits of the procedure were explained to the patient. Patient did have noninvasive monitoring was placed including noninvasive blood pressure cuff and pulse oximeter. Patient's pump was interrogated and was reprogrammed to Dilaudid 0.6042 mg/day. The patient tolerated the procedure well with no complications. Plan and Disposition:: Patient tolerated the procedure well with no complications and was discharged neurologically intact. Patient was able to have his sutures and chaitanya removed with skin and Steri-Strips applied. Patient was counseled to continue his postop restrictions the full 6 weeks. Patient acknowledges understanding. Patient will return to clinic on or before their next intrathecal refill date. We will see the patient back in the clinic at the next intrathecal refill. Patient has been instructed to contact the clinic with any concerns before the next appointment. Dr. Ryan has reviewed this note and agrees with this plan of care. This note was dictated using voice recognition software and make contain errors or omissions. -- It Is medically necessary for this patient to continue to have their intrathecal pump refilled at regular intervals. This patient had an intrathecal pain pump implanted after meeting criteria of chronic intractable pain for greater than 3 months and failing conservative treatments. Patient has committed and been compliant to the treatment plan and all planned follow up care. Since implantation of the intrathecal pain pump, the patient has had decreased pain and been more functional. Oral medications have been reduced including intake of oral opioids. Patient continues to do well with intrathecal therapy with decrease in pain symptoms and increase in functional status. Stopping intrathecal medications can lead to life threatening withdrawal, seizures, cardiac arrest, severe pain, and possible . Pumps that are not refilled at regular intervals can be damages and cause and need for replacement. We continually titrate dose and concentration to optimize pain relief and function. We are limited in concentration for certain drugs to safely deliver medications through the pump and stay within the recommendations from the Polyanalgesic Consensus Committee Guidelines. Depending on dose and concentration these pumps may need to be refilled sooner than 3 months as we titrate. A UDS is needed to verify patient's compliance with our office pain contract. This is ordered based off specific treatments related to chronic pain with the potential to abuse certain medications.
== END 2024-08-30 23:59 | disposition home or self-care (01) ==
PROVIDERS: Visit Provider Nurse Practitioner Family
DX: M51.16 Intervertebral disc disorders with radiculopathy, lumbar region (principal)
CPT/HCPCS: 62368; 99212; 99213; G0463

== ENCOUNTER 2024-09-08 13:49 | Outpatient (POV) | payer MEDICARE, SELFPAY ==
[2024-09-08 14:01] VITALS: BP 136/76; PULSE 67; RESP 14; O2SAT 96; BMI 31.4
--- NOTE | 2024-09-08 14:24 | P.PCN_ITS ---
Procedure Date: 09/08/24 Time: 14:24 Anesthesiologist:: Katherin Devlin APRN Complications:: None Pre-procedure Diagnosis:: Degenerative disc disease of lumbar spine with lumbar radiculopathy symptoms, right sided sacroiliitis Post-procedure Diagnosis:: Same Indications for Procedure:: Patient is a pleasant 54-year-old male who presents today for intrathecal adjustment and reprogram as well as possible concerns for infection of the lateral incision. Patient did just recently have his pump replaced and states he had been doing extremely well with this however last week he noticed more drainage and did worry that there was possible infection. Patient ended up going to an outside provider and was given Keflex as a precaution. Patient does want to make sure everything looks okay. Patient does also make mention that he is having increased pain a little over from the pump on that right side. He denies any new falls or injuries. His Anant has been reviewed and is appropriate. Patient is currently managed with Dilaudid 3 mg/mL with a daily dose of 0.6042 mg/day. He denies any side effects. Physical Exam: General: Alert and oriented x3, no acute distress, pleasant and cooperative Lungs: Respirations even and unlabored, symmetrical chest expansion Eyes: PERRL Musculoskeletal: Flexion and extension of lumbar [spine] somewhat guarded secondary to pain, [antalgic gait noted] Neurological: Speech clear, no gross sensory deficit Skin: Incision sites is clean, dry, well-approximated with minimal erythema noted. Midline incision is fully healed and lateral incision is healed along the lateral sides Procedure Details:: Informed consent was obtained and the risk and benefits of the procedure were explained to the patient. Patient did have noninvasive monitoring was placed including noninvasive blood pressure cuff and pulse oximeter. Patient's pump was interrogated and was reprogrammed to Dilaudid 0.6955 mg/day. The patient tolerated the procedure well with no complications. Plan and Disposition:: Patient was counseled that the pain he is experiencing does seem to be appropriate for right sacroiliitis. Patient did have point tenderness during today's visit. I did discuss the possibility of injections however he would like to hold off on this option. Patient did tolerate his intrathecal increase with no complications. I did pediatric genetic counselor him that the lateral incision has not fully healed however there is no increased redness or drainage during today's visit. Patient's vitals are all stable. I did pediatric genetic counselor him that as of right now I do not have any concerns for infection or that the incision has dehisced. Patient will be added skin glue and Steri-Strips. He was counseled that he is still on postop restrictions the full 6 weeks or longer until that incision has fully healed. Patient will return to clinic in 2 weeks for reevaluation of symptoms and plan of care. We will see the patient back in the clinic at the next intrathecal refill. Patient has been instructed to contact the clinic with any concerns before the next appointment. Dr. Ryan has reviewed this note and agrees with this plan of care. This note was dictated using voice recognition software and make contain errors or omissions. -- It Is medically necessary for this patient to continue to have their intrathecal pump refilled at regular intervals. This patient had an intrathecal pain pump implanted after meeting criteria of chronic intractable pain for greater than 3 months and failing conservative treatments. Patient has committed and been compliant to the treatment plan and all planned follow up care. Since implantation of the intrathecal pain pump, the patient has had decreased pain and been more functional. Oral medications have been reduced including intake of oral opioids. Patient continues to do well with intrathecal therapy with decrease in pain symptoms and increase in functional status. Stopping intrathecal medications can lead to life threatening withdrawal, seizures, cardiac arrest, severe pain, and possible . Pumps that are not refilled at regular intervals can be damages and cause and need for replacement. We continually titrate dose and concentration to optimize pain relief and function. We are limited in concentration for certain drugs to safely deliver medications through the pump and stay within the recommendations from the [employer] Consensus Committee Guidelines. Depending on dose and concentration these pumps may need to be refilled sooner than 3 months as we titrate. A UDS is needed to verify patient's compliance with our office pain contract. This is ordered based off specific treatments related to chronic pain with the potential to abuse certain medications.
== END 2024-09-08 23:59 | disposition home or self-care (01) ==
PROVIDERS: Visit Provider Nurse Practitioner Family
DX: M51.16 Intervertebral disc disorders with radiculopathy, lumbar region (principal); M46.1 Sacroiliitis, not elsewhere classified
CPT/HCPCS: 62368; 99212; 99213; G0463

== ENCOUNTER 2024-09-22 14:43 | Outpatient (POV) | payer MEDICARE, SELFPAY ==
--- OUTSIDE RECORDS SUMMARY | 2024-09-22 14:47 | XMS_ITS | Data Portability ---
Author Organization [place] [facility] Address [address] [place] [address] Assessment Encounter Date Assessment Date Assessment LastModified [...] Dilaudid 0.28mg/day. --- Plan: Patient lives in [place], [place]. He says that he needs to drive more than 2 hours to our clinic. We talked to him about home refill with [facility]. He is interested in this. We will send a referral today to [facility]. If for some reason his insurance won't approve home refill, we can schedule him in [place] or [place] for pump refill. We will see the [...] its end-of-life. Patient does have a flow [place] pain pump device. [facility] did issue a statement saying that their [...] this plan of care. His Anant is [id number]. Patient is prescribed gabapentin from an outside [...] software and may contain errors or omissions. Not available 11/04/2023 15:29:50 02/23/2024 02/23/2024 This is a man [facility] 54-year-old male who presents today for [...] is prescribed this from an outside clinic. [facility] #[id number], drug screen from 11-04-2023 was reviewed and [...] for intrathecal pain pump change out in [place]. We have sent his contact information to Shannan to have him scheduled. Will follow up on this at his next appointment. We have instructed patient to contact our office if he has any further questions or concerns. [facility]ux Not available 02/23/2024 18:10:40 05/25/2024 05/25/2024 This is a man [facility] 54-year-old male that presents today for [...] is requesting that this is performed in [place]. [facility] #[id number], drug screen from 02/23/2024 was reviewed and [...] Organization Details Last Modified Time Details Appointments None recorded. Lab None recorded. Referral None recorded. Procedures intrathecal pump refill (PROC) 2024 025 [email or web address] Not available 5 13:50:32 intrathecal pump adjustment (PROC) 2024 025 [email or web address] Not available 5 13:50:50 intrathecal pump refill (PROC) 2023 024 [email or web address] Not available 4 12:16:31 intrathecal pump refill (PROC) 2022 023 [email or web address] Not available 3 16:10:12 Surgeries replacement of programmabl e pump for intrathecal or epidural drug infusion (SURG) 2023 024 Not available 4 10:52:04 revision or repositioni ng of tunneled intrathecal or epidural catheter (SURG) 2023 024 Not available 4 10:52:05 Imaging None recorded. Medication Orders None recorded. Patient TargetsNo targets recorded. Patient Instructions Encounter Date Encounter Id Patient Instructions Last Modified By Organization Details Last Modified Time 04/24/2023 [id number] back pain: care instructions abux Not available [...] Recorded Time Degeneration of lumbar intervertebral disc 72382689 Active 2019 Armen Ryan MD [address], [address], [place] [facility] 0 14:12:52 Lumbar radiculopathy 470929663 Active 2019 Armen Ryan MD [address] [facility],[address], [address], [place] [facility] 0 14:12:53 Low back pain 774594262 Active 2019 Armen Ryan MD [address], [place], [address], [place] [facility] 0 14:12:55 Problem Notes None recorded. Procedures Surgical History Date Name Laterality Status Provider Name and Address Organization Details Recorded Time 5 Pump Refill completed MARVIN SUPA, PA [address],[place] [address], [place], [address], [place] [facility] 05/25/2024 13:26:06 4 Pump Refill completed MARVIN FARRISSALVES, PA [address] [facility], [place], [address], [place] [facility] 02/23/2024 15:25:53 4 PUMP ADJUSTMENT completed Katherin Devlin NP [address] [facility], [place], [address], [place] [facility] 11/04/2023 15:27:15 3 Pump Refill completed Brett Carvalho [address],[place] [address], [place], [address], [place] [facility] 11/05/2022 11:33:06 3 Pump Refill LENA completed Brett Carvalho [address],[place] [address], [place], [address], [place] [facility] 09/17/2022 11:56:20 3 Pump Refill completed Katherin Devlin NP [address], [address], [place] [facility] 07/23/2022 09:28:49 3 Pump Refill cancelled Troy Gómez [place] [facility] 07/03/2022 15:13:09 3 Pump Refill completed Aremn Ryan MD [address],[place] [address], [place], [address], [place] [facility] 05/21/2022 16:21:26 3 Pump Refill cancelled Troy Góme[place] [facility] 05/06/2022 13:21:48 2 Pump Refill completed Armen Ryan MD [address], [place], [address], [place] [facility] 03/26/2022 23:22:53 2 Pump Refill active uJana Jonestt [place] [facility] 03/11/2022 09:37:20 2 Pump Refill completed Armen Ryan MD [address], [place], [address], [place] [facility] 01/22/2022 15:45:09 2 Pump Refill cancelled Negar Lyons [place] [facility] 01/07/2022 15:39:16 2 Pump Refill completed Armen Ryan MD [address], [place], [address], [place] [facility] 11/13/2021 09:30:43 2 Pump Refill completed Armen Ryan MD [address], [place], [address], [place] [facility] 09/04/2021 11:48:36 2 Pump Refill completed Geri Lai [place] [facility] 06/26/2021 15:07:31 1 Pump Refill completed Armen Ryan MD [address], [place], [address], [place] [facility] 04/10/2021 16:16:52 1 Pump Refill active Georgie Cam [place] [facility] 04/03/2021 07:57:17 1 Pump Refill completed Armen Ryan MD [address], [place], [address], [place] [facility] 01/23/2021 15:47:18 1 Pump Refill completed Sari Sanz [place] [facility] 11/14/2020 13:06:16 1 Pump Refill completed Anastasia Salas [place] [facility] 08/22/2020 13:26:29 1 Pump Refill completed Anastasia Salas [place] [facility] 05/30/2020 14:13:41 1 Pump Refill completed Vikki Wellsbrent [place] [facility] 05/16/2020 14:56:14 0 Pump Refill completed Armen Ryan MD [address], [place], [address], [place] [facility] 04/11/2020 14:11:20 0 Pump Refill completed Armen Ryan MD [address], [place], [address], [place] [facility] 02/01/2020 15:51:30 [...] saturation in Arterial blood by Pulse oximetry Systolic blood pressure Diastolic blood pressure Provider Name and Address Organization Details Last Updated DateTime 5 180.34 cm 18.7 kg/m2 28871.3 8 g 68 /min 98 % 98 % 126 mm[Hg] 82 mm[Hg] STEVO VIERA [place] [facility] 5 13:04:03 Date Recorded Body height Heart rate Body mass index (BMI) Body weight Oxygen saturation Oxygen saturation in Arterial blood by Pulse oximetry Systolic blood pressure Diastolic blood pressure Provider Name and Address Organization Details Last Updated DateTime 4 180.34 cm 62 /min 18.7 kg/m2 26304.3 8 g 98 % 98 % 126 mm[Hg] 82 mm[Hg] STEVO VIERA [place] [facility] 4 14:16:17 Date Recorded Body height Body mass index (BMI) Body weight Oxygen saturation Oxygen saturation in Arterial blood by Pulse oximetry Heart rate Systolic blood pressure Diastolic blood pressure Provider Name and Address Organization Details Last Updated DateTime 3 180.34 cm 18.7 kg/m2 39276.3 8 g 98 % 98 % 60 /min 128 mm[Hg] 84 mm[Hg] STEVO VIERA [place] [facility] 3 10:09:59 Date Recorded Body height Oxygen saturation Oxygen saturation in Arterial blood by Pulse oximetry Heart rate Body mass index (BMI) Body weight Systolic blood pressure Diastolic blood pressure Provider Name and Address Organization Details Last Updated DateTime 4 180.34 cm 98 % 98 % 66 /min 18.7 kg/m2 78772.3 8 g 126 mm[Hg] 82 mm[Hg] STEVO VIERA [place] [facility] 4 14:20:03 Social History Question Answer Notes LastModified by Organizat ion Details LastModified Time Tobacco Smoking Status Current Every Day Smoker Juana Mcguire [place], [place] [facility] 05/30/2020 13:30:49 Do You Have An Advance Directive? Yes Information n ot available 05/30/2020 Auto Related Injury? No Information not available 05/30/2020 What Is Your Level Of Caffeine Consumption? Heavy Information not available 05/30/2020 How Much Tobacco Do You Chew? None Information not available 05/30/2020 In The 14 Days Before Symptom Onset, Have You Had Close Contact With A Laboratory-confirm ed COVID-19 While That Case Was Ill? No [email or web address] Information n ot available 11/04/2023 In The 14 Days Before Symptom Onset, Have You Had Close Contact With A Person Who Is Under Investigation For COVID-19 While That Person Was Ill? No [email or web address] Information not available 11/04/2023 Have You Been To An Area Known To Be High Risk For COVID-19? No Information not available 11/04/2023 What Type Of Diet Are You Following? REGULAR Information n ot available 05/30/2020 Which Illicit Or Recreational Drugs Have You Used? None Information not available 05/30/2020 Which Of Your Hands Is Dominant? Right Information n ot available 05/30/2020 Live Alone Or With Others? With Others Information not available 05/30/2020 What Was The Date Of Your Most Recent Tobacco Screening? 02/23/2024 [email or web address] Information not available 02/23/2024 At What Age Did You Start Smoking Tobacco? 48 Information not available 05/30/2020 How Much Tobacco Do You Smoke? 2 PPD Information not available 05/30/2020 General Stress Level Medium Information not available 05/30/2020 How Many Years Have You Smoked Tobacco? 2 Information not available 05/30/2020 Work Related Injury? No Information not available 05/30/2020 Sex: Unknown Functional Status Question Answer Note LastModified by Organizat ion Details LastModified Time Do you use any illicit or recreational drugs? No [email or web address] Information not available 11/04/2023 What is your level of alcohol consumption? None Information not available 05/30/2020 Do you or have you ever used smokeless tobacco? Never used smokeless tobacco Information not available 05/30/2020 Are you currently employed? No Information not available 05/30/2020 Do you or have you ever used e-cigarettes or vape? Never used electronic cigarettes Information not available 05/30/2020 What is your exercise level? None Information [...] N COPD N Anemia N Heart Attack (IA) N Ulcers Y Diabetes Y Anxiety Disorder [...] Code Diagnosis Note 109 Armen Ryan MD [facility] [address] [address] 02/01/2020 14:08:01 02/08/2020 21:20:11 Degeneration of lumbar intervertebral disc 70803984 M51.36 265 Armen Ryan MD [facility],[address] [address] 04/11/2020 09:49:36 04/11/2020 14:24:31 Degeneration of lumbar intervertebral disc 26570229 M51.36 Lumbar radiculopathy 128 152483 M54.16 Low back pain 755338717 M54.5 403 VIKKI JONES NP [facility] 101 [facility],[address] [place] [address] 05/16/2020 13:04:23 05/16/2020 14:20:29 Degeneration of lumbar intervertebral disc 86038152 M51.36 Lumbar radiculopathy 128 412457 M54.16 Low back pain 369728079 M54.5 455 ANASTASIA SALAS NP [facility] 101 [facility],[address] [place] [address] 05/30/2020 12:38:19 05/31/2020 14:35:19 Degeneration of lumbar intervertebral disc 23953859 M51.36 Lumbar radiculopathy 128 886971 M54.16 Low back pain 290825248 M54.5 749 Armen Ryan MD [facility] [address] [facility],[address] [place] [address] 08/22/2020 13:00:02 08/22/2020 15:30:01 Degeneration of lumbar intervertebral disc 97611834 M51.36 Low back pain 597629752 M54.5 Lumbar radiculopathy 128 312619 M54.16 1089 GERI LAI MD [facility] [address] [facility],[address] [place] [address] 11/14/2020 12:35:08 11/14/2020 15:28:57 Lumbar radiculopathy 104954262 M54.16 1506 Armen Ryan MD [facility] [address] [facility],[address] [place] [address] 01/23/2021 12:55:55 01/23/2021 14:47:37 Degeneration of lumbar intervertebral disc 78053809 M51.36 Low back pain 396355655 M54.50 Lumbar radiculopathy 128 644788 M54.16 1982 GERI LAI MD [facility] [address] [facility],[address] [place] [address] 04/10/2021 13:01:47 04/10/2021 13:25:16 Degeneration of lumbar intervertebral disc 71527784 M51.36 Low back pain 889561535 M54.50 Lumbar radiculopathy 128 176321 M54.16 2535 GERI LAI MD [facility] 101 [facility] [address] [place] [address] 6 06/26/2021 13:47:26 06/26/2021 14:47:42 Degeneration of lumbar intervertebral disc 46606952 M51.36 Low back pain 463209159 M54.50 Lumbar radiculopathy 128 896928 M54.16 4564 Armen Ryan MD [facility] 101 [facility],[place] [address] 6 09/04/2021 08:51:50 09/04/2021 09:37:06 Degeneration of lumbar intervertebral disc 38938136 M51.36 Low back pain 106684535 M54.50 Lumbar radiculopathy 128 521530 M54.16 6401 Armen Ryan MD [facility] [address] [facility] [address] [place] [address] 6 11/13/2021 08:03:12 11/13/2021 09:00:15 Degeneration of lumbar intervertebral disc 33318341 M51.36 Low back pain 323376814 M54.50 Lumbar radiculopathy 128 509785 M54.16 8284 Armen Ryan MD [facility] [address] [place] [address],[place] [address] 6 01/22/2022 13:06:13 01/22/2022 14:57:32 Lumbar radiculopathy 016752977 M54.16 Degenerati on of lumbar intervertebral disc 02498830 M51.36 Low back pain 195338514 M54.50 9813 Armen Ryan MD [facility] [address] [facility],[place] [address] 6 03/26/2022 11:47:56 03/26/2022 13:20:37 Degeneration of lumbar intervertebral disc 68130334 M51.36 Low back pain 102837575 M54.50 Lumbar radiculopathy 128 571857 M54.16 [id number] Armen Ryan MD [facility] [address] [place] [address],[place] [address] 6 05/21/2022 13:37:14 05/21/2022 15:37:38 Lumbar radiculopathy 334072257 M54.16 Degenerati on of lumbar intervertebral disc 99124347 M51.36 Low back pain 787370145 M54.50 [id number] Katherin Devlin NP [facility] [address] [place] [address],[place] [address] 6 07/23/2022 08:59:36 07/23/2022 09:25:34 Lumbar radiculopathy 401738138 M54.16 Degenerati on of lumbar intervertebral disc 06813326 M51.36 Low back pain 631604471 M54.50 [id number] Brett Carvalho [address],[place] [address] 6 09/17/2022 11:18:16 09/17/2022 11:59:20 Degeneration of lumbar intervertebral disc 57110581 M51.36 Low back pain 928661815 M54.50 Lumbar radiculopathy 128 524605 M54.16 [id number] Brett Carvalho [address] [facility] [place] [address] 11/05/2022 09:58:28 11/05/2022 10:31:43 Degeneration of lumbar intervertebral disc 66928372 M51.36 Low back pain 256093973 M54.50 Lumbar radiculopathy 128 699722 M54.16 [id number] Armen Ryan MD [address] [facility] [place] [address] 04/24/2023 09:41:59 04/24/2023 11:24:30 Degeneration of lumbar intervertebral disc 69326490 M51.36 Low back pain 792975641 M54.50 Lumbar radiculopathy 128 263168 M54.16 [id number] Katherin Devlin NP [address] [facility] [place] [address] 11/04/2023 14:10:01 11/04/2023 15:08:33 Lumbar radiculopathy 102675485 M54.16 Degenerati on of lumbar intervertebral disc 36480136 M51.36 Low back pain 757736390 M54.50 [id number] Armen Ryan MD [facility] [address] [place] [address] 02/23/2024 14:02:27 02/23/2024 14:46:13 Lumbar radiculopathy 119403045 M54.16 Degenerati on of lumbar intervertebral disc 11649841 M51.369 Low back pain 377080442 M54.50 85077 CARLITO RIBEIRO [facility] [address] [place] [address] 05/25/2024 12:59:24 05/25/2024 13:23:36 Lumbar radiculopathy 878619075 M54.16 Degenerati on of lumbar intervertebral disc 84500188 M51.369 Low back pain 823375872 M54.50 Long-term drug therapy 255435551 Z79.891 Continuous opioid dependence 559747029 F11.20 Health Concerns Section Related Observation LastModified by Organization Detai ls LastModified Time None Recorded Concern Status LastModified by Organization Details LastModified Time None Recorded Advance Directives Directive Y: Payers Encounter Date Sequence Insurance Name Policy Number Policy Chaudhry Covered Member ID Chaudhry Member ID Guarantor Name 11/05/2022 1 [employer] (MEDICARE REPLACEMENT/A DVANTAGE - PPO) Juan Antonio Sylvester [id number] Juan Antonio Sylvester 04/24/2023 1 [employer] (MEDICARE REPLACEMENT/A DVANTAGE - PPO) Juan Antonio Sylvester [id number] Juan Antonio Sylvester 11/04/2023 1 [employer] (MEDICARE REPLACEMENT/A DVANTAGE - PPO) Juan Antonio Sylvester [id number] Juan Antonio Sylvester 02/23/2024 1 [employer] (MEDICARE REPLACEMENT/A DVANTAGE - PPO) Juan Antonio Sylvester [id number] Juan Antonio Sylvester 05/25/2024 1 [employer] (MEDICARE REPLACEMENT/A DVANTAGE - PPO) Juan Antonio Sylvester [id number] Juan Antonio Sylvester Notes Date Note Type Note Provider Name and Address Organization Details Recorded Time 11/05/2022 text/html Pt in clinic tod ay for a Pump rfPt pain score is __/10 Brett Carvalho [address], [address], [place] [facility] 11/05/2022 11:40:12 04/24/2023 text/html Pt in clinic for a 6 month f/uPain score is 5/[address] his pain is usually around 3/10the increase he had to his pump last time has helped with his pain Armen Ryan MD [address], [address], [place] [facility] 04/24/2023 [...] month f/u Katherin Devlin NP [address], [address], [place] [facility] 11/04/2023 [...] no recent increase in stress;numbness of the legs/feet;amitaing Armen Ryan MD [address], [address], [place] [facility] 02/23/2024 18:11:14 [...] no recent increase in stress;numbness of the legs/feet;phani Ryan MD [address], [address], [place] [facility] 06/24/2024 11:32:17
[2024-09-22 14:54] VITALS: BP 130/68; PULSE 67; RESP 14; O2SAT 96; BMI 31.1
--- NOTE | 2024-09-22 15:10 | P.PCN_ITS ---
Procedure Date: 09/22/24 Time: 15:08 Anesthesiologist:: Katherin Devlin APRN Complications:: None Pre-procedure Diagnosis:: Degenerative disc disease of lumbar spine with lumbar radiculopathy symptoms Post-procedure Diagnosis:: same Indications for Procedure:: Patient is a pleasant 54-year-old male who presents today for 2-week follow-up. He does rate his pain a 5 out of 10. He denies any new falls or injuries. He does state overall his incision has almost fully healed but he does have 1 area that still does have increased leaking with certain positions. He is currently managed with Dilaudid 0.6955 mg/day. He denies any side effects. He does state that the last increase did significantly help by about 30%. He is requesting an additional increase. His Anant has been reviewed and is appropriate. Physical Exam: General: Alert and oriented x3, no acute distress, pleasant and cooperative Lungs: Respirations even and unlabored, symmetrical chest expansion Eyes: PERRL Musculoskeletal: Flexion and extension of lumbar [spine] somewhat guarded secondary to pain, [antalgic gait noted] Neurological: Speech clear, no gross sensory deficit Procedure Details:: Informed consent was obtained and the risk and benefits of the procedure were explained to the patient. Patient did have noninvasive monitoring was placed including noninvasive blood pressure cuff and pulse oximeter. Patient's pump was interrogated and was reprogrammed to Dilaudid 0.9046 mg/day. The patient tolerated the procedure well with no complications. Plan and Disposition:: Patient tolerated the procedure well with no complications and was discharged neurologically intact. I did look at his incision and everything is completely healed except for 1 area about 1 mm in size and has very minimal fluid with palpation during today's exam. I did discuss with him that overall he has been released from his postop restrictions however he is still not to submerge in any water until it is fully healed. Patient acknowledges understanding agrees with this plan of care. Patient will return to clinic on or before their next intrathecal refill date. We will see the patient back in the clinic at the next intrathecal refill. Patient has been instructed to contact the clinic with any concerns before the next appointment. Dr. Ryan has reviewed this note and agrees with this plan of care. This note was dictated using voice recognition software and make contain errors or omissions. -- It Is medically necessary for this patient to continue to have their intrathecal pump refilled at regular intervals. This patient had an intrathecal pain pump implanted after meeting criteria of chronic intractable pain for greater than 3 months and failing conservative treatments. Patient has committed and been comp liant to the treatment plan and all planned follow up care. Since implantation of the intrathecal pain pump, the patient has had decreased pain and been more functional. Oral medications have been reduced including intake of oral opioids. Patient continues to do well with intrathecal therapy with decrease in pain symptoms and increase in functional status. Stopping intrathecal medications can lead to life threatening withdrawal, seizures, cardiac arrest, severe pain, and possible . Pumps that are not refilled at regular intervals can be damages and cause and need for replacement. We continually titrate dose and concentration to optimize pain relief and function. We are limited in concentration for certain drugs to safely deliver medications through the pump and stay within the recommendations from the Polyanalgesic Consensus Committee Guidelines. Depending on dose and concentration these pumps may need to be refilled sooner than 3 months as we titrate. A UDS is needed to verify patient's compliance with our office pain contract. This is ordered based off specific treatments related to chronic pain with the potential to abuse certain medications.
== END 2024-09-22 23:59 | disposition home or self-care (01) ==
PROVIDERS: Visit Provider Nurse Practitioner Family
DX: M51.369 Other intervertebral disc degeneration, lumbar region without mention of lumbar back pain or lower extremity pain (principal); G89.29 Other chronic pain; Z79.899 Other long term (current) drug therapy
CPT/HCPCS: 99212; G0463

== ENCOUNTER 2024-10-08 11:36 | Day surgery (SDC) | payer MEDICARE, SELFPAY ==
--- NOTE | 2024-10-08 11:38 | EXP.PM.HP ---
History of Present Illness *Admission Date: 10/08/24 *Reason for visit:: Intrathecal refill; DDD *History of present illness: Same [facility] Disclaimer: The information contained in this section may have been updated after the patient was seen, as this information can be updated by other users. Medical History HLD (hyperlipidemia) Degenerative disc disease Lumbar radiculopathy GERD (gastroesophageal reflux disease) Diabetes Surgical History History of back surgery Family History Other No significant family history Social History Smoking Status: Current every day smoker alcohol intake: never substance use type: denies use current occupational status: other Travel in the last 8 weeks?: None Have you lived/traveled outside [place] in past 30 days?: No Contact w/someone who lives/traveled outside US past 30 days?: No Exposure to someone with infectious disease in past 14 days?: No Do you have a fever (greater than 100.4 F or 38 C)?: No Have you tested positive for COVID-19?: No Exposed to someone with COVID-19 in past 14 days?: No Do you have a sore throat?: No Do you have a cough?: No Do you have any weakness?: No Do you have any diarrhea?: No Are you experiencing any unusual bleeding?: No Do you have any muscle aches/pain?: No Do you have any abdominal pain?: No Are you experiencing loss of taste or smell?: No Other Medical History Have you received the Flu Vaccine for this season: No Have you received the Pneumonia Vaccine: No Review of Systems Review of Systems Review of systems:: pertinent systems reviewed and negative unless documented below Review of systems (narrative): Review of Systems: General: No recent weight changes, no fever, no sleep disturbances Respiratory: No cough, no shortness of air, no recurring pulmonary infections Cardiovascular/peripheral vascular: No chest pain, no palpitations, no edema, no shortness of breath Gastrointestinal: No new onset incontinence, normal bowel movements reported Genitourinary: No new onset incontinence Musculoskeletal: Chronic back pain Psychiatric: [Normal mood/affect] Neurological: [Denies weakness in extremities], [denies balance issues] Meds Home Medications and Allergies Home Medications ?Medication ?Instructions ?Recorded ?Confirmed ?Type gabapentin 300 mg capsule 300 mg PO DAILY 07/30/24 09/22/24 History levocetirizine 5 mg tablet 5 mg PO DAILY 07/30/24 09/22/24 History metformin 750 mg tablet,extended 750 mg PO DAILY Diabetes 07/30/24 09/22/24 History release 24 hr rosuvastatin 10 mg tablet 10 mg PO DAILY Cholesterol 07/30/24 09/22/24 History New Prescriptions to Start Prescriptions: Allergies Allergy/AdvReac Type Severity Reaction Status Date / Time No Known Allergies Allergy Verified 08/06/24 09:31 Exam Constitutional Constitutional: no acute distress *Routine HEENT Exam Head: Present normocephalic and atraumatic Eye: Present PERRL ENT: Present mucous membranes moist *Routine Neck Exam Neck: Present supple *Routine Respiratory Exam Respiratory: Present CTA bilaterally *Routine Cardiovascular Exam Cardiovascular: Present RRR *Routine Abdominal Exam Abdominal: Present soft *Routine Rectal Exam Rectal:: deferred *Routine Genitalia Exam Genitalia:: deferred Routine Back/Spine/Pelvis Exam Back/Spine: Present pain with flexion *Routine Skin Exam Skin: Present intact, dry and warm *Routine Neurological Exam Neurological: Present alert and oriented X3 Routine Psychiatric Exam Psychiatric: Present normal affect and normal thought process Assessment and Plan *Assessment and plan (1) Lumbar radiculopathy: Status: Acute Category: Medical Code(s): M54.16 - Radiculopathy, lumbar region (2) Degenerative disc disease: Status: Acute Category: Medical Plan Patient has been instructed to contact the clinic with any concerns before the next appointment. Dr. Ryan has reviewed this note and agrees with this plan of care. This note was dictated using voice recognition software and make contain errors or omissions. All injections are used with Lidocaine, Bupivacaine and dexamethasone. Occasionally urine drug screen is needed to verify patient's compliance with our office pain contract. This is ordered based off specific treatments related to chronic pain with the potential to abuse certain medications.
--- NOTE | 2024-10-08 11:40 | EXP.PAIN.PRO ---
Procedure Date: 10/08/24 Time: 12:04 Anesthesiologist:: Katherin Devlin APRN Complications:: None Pre-procedure Diagnosis:: Degenerative disc disease of lumbar spine with lumbar radiculopathy symptoms Post-procedure Diagnosis:: Same Indications for Procedure:: Patient is a pleasant 54-year-old male who presents today for intrathecal refill and reprogram. Today he rates his pain a 5 out of 10. He denies any new injuries or trauma. He does state that he would like to see about an increase on his pump.He is managed with gabapentin from an outside provider and his intrathecal Dilaudid pump are office. His current settings are Dilaudid 3 mg/mL with a daily dose of 0.9046 mg/day. His Anant has been reviewed and is appropriate. Physical Exam: General: Alert and oriented x3, no acute distress, pleasant and cooperative Lungs: Respirations even and unlabored, symmetrical chest expansion Eyes: PERRL Musculoskeletal: Flexion and extension of lumbar [spine] somewhat guarded secondary to pain, [antalgic gait noted] Neurological: Speech clear, no gross sensory deficit Procedure Details:: Informed consent was obtained and the risk and benefits of the procedure were explained to the patient. The patient had noninvasive monitoring placed including noninvasive blood pressure cuff and pulse oximeter. Patient's pump was interrogated. The area over the pump was cleansed with chlorhexidine as a cleansing solution. In sterile fashion the pump was accessed with a 22-gauge needle. Approximately 3.5 mls of the pump solution was removed and discarded appropriately. The pump was then refilled with 20 mL's of Dilaudid 3 mg/mL. The needle was withdrawn and a bandage was placed over the puncture site. The infusion rate was reprogrammed and increased 15% Dilaudid 1.0399 mg/day. The patient tolerated well with no complication. Plan and Disposition:: Patient tolerated the procedure well with no complications and was discharged neurologically intact. Patient will return to clinic on or before their next intrathecal refill date. We will see the patient back in the clinic at the next intrathecal refill. Patient has been instructed to contact the clinic with any concerns before the next appointment. Dr. Ryan has reviewed this note and agrees with this plan of care. This note was dictated using voice recognition software and make contain errors or omissions. -- It Is medically necessary for this patient to continue to have their intrathecal pump refilled at regular intervals. This patient had an intrathecal pain pump implanted after meeting criteria of chronic intractable pain for greater than 3 months and failing conservative treatments. Patient has committed and been compliant to the treatment plan and all planned follow up care. Since implantation of the intrathecal pain pump, the patient has had decreased pain and been more functional. Oral medications have been reduced including intake of oral opioids. Patient continues to do well with intrathecal therapy with decrease in pain symptoms and increase in functional status. Stopping intrathecal medications can lead to life threatening withdrawal, seizures, cardiac arrest, severe pain, and possible . Pumps that are not refilled at regular intervals can be damages and cause and need for replacement. We continually titrate dose and concentration to optimize pain relief and function. We are limited in concentration for certain drugs to safely deliver medications through the pump and stay within the recommendations from the Polyanalgesic Consensus Committee Guidelines. Depending on dose and concentration these pumps may need to be refilled sooner than 3 months as we titrate. A UDS is needed to verify patient's compliance with our office pain contract. This is ordered based off specific treatments related to chronic pain with the potential to abuse certain medications.
[2024-10-08 11:50] VITALS: BP 138/71; PULSE 65; RESP 16; TEMP 36.8; O2SAT 97; BMI 31.1
[2024-10-08 11:57] VITALS: BP 121/79; PULSE 77; RESP 18; O2SAT 95
[2024-10-08 12:10] VITALS: BP 144/72; PULSE 71; RESP 16; O2SAT 97
== END 2024-10-08 12:10 | disposition home or self-care (01) ==
PROVIDERS: Visit Provider Nurse Practitioner Family
DX: Z45.1 Encounter for adjustment and management of infusion pump (principal); M51.16 Intervertebral disc disorders with radiculopathy, lumbar region; E78.5 Hyperlipidemia, unspecified; K21.9 Gastro-esophageal reflux disease without esophagitis; E11.9 Type 2 diabetes mellitus without complications; F17.200 Nicotine dependence, unspecified, uncomplicated; Z79.84 Long term (current) use of oral hypoglycemic drugs; Z79.899 Other long term (current) drug therapy
CPT/HCPCS: 62370

== ENCOUNTER 2024-11-12 10:40 | Day surgery (SDC) | payer MEDICARE, SELFPAY ==
[2024-11-12 11:00] VITALS: BP 149/86; PULSE 66; RESP 18; O2SAT 96; BMI 30.7
--- NOTE | 2024-11-12 11:34 | P.HP_ITS ---
History of Present Illness *Admission Date: 11/12/24 *Reason for visit:: Intrathecal refill; DDD *History of present illness: Same [facility] Disclaimer: The information contained in this section may have been updated after the patient was seen, as this information can be updated by other users. Medical History HLD (hyperlipidemia) Degenerative disc disease Lumbar radiculopathy GERD (gastroesophageal reflux disease) Diabetes Surgical History History of back surgery Family History Other No significant family history Social History Smoking Status: Current every day smoker alcohol intake: never substance use type: denies use current occupational status: other Travel in the last 8 weeks?: None Have you lived/traveled outside US in past 30 days?: No Contact w/someone who lives/traveled outside US past 30 days?: No Exposure to someone with infectious disease in past 14 days?: No Do you have a fever (greater than 100.4 F or 38 C)?: No Have you tested positive for COVID-19?: No Exposed to someone with COVID-19 in past 14 days?: No Do you have a sore throat?: No Do you have a cough?: No Do you have any weakness?: No Do you have any diarrhea?: No Are you experiencing any unusual bleeding?: No Do you have any muscle aches/pain?: No Do you have any abdominal pain?: No Are you experiencing loss of taste or smell?: No Other Medical History Have you received the Flu Vaccine for this season: No Have you received the Pneumonia Vaccine: No Review of Systems Review of Systems Review of systems:: pertinent systems reviewed and negative unless documented below Review of systems (narrative): Review of Systems: General: No recent weight changes, no fever, no sleep disturbances Respiratory: No cough, no shortness of air, no recurring pulmonary infections Cardiovascular/peripheral vascular: No chest pain, no palpitations, no edema, no shortness of breath Gastrointestinal: No new onset incontinence, normal bowel movements reported Genitourinary: No new onset incontinence Musculoskeletal: Chronic back pain Psychiatric: [Normal mood/affect] Neurological: [Denies weakness in extremities], [denies balance issues] Meds Home Medications and Allergies Home Medications ?Medication ?Instructions ?Recorded ?Confirmed ?Type gabapentin 300 mg capsule 300 mg PO DAILY 07/30/24 History levocetirizine 5 mg tablet 5 mg PO DAILY 07/30/24 07/2 09/12 History metformin 750 mg tablet,extended 750 mg PO DAILY Diabe rehan 07/30/24 11/12/24 History release 24 hr rosuvastatin 10 mg tablet 10 mg PO DAILY Cholesterol 0 07/30/24 11/12/24 History New Prescriptions to Start Prescriptions: Allergies Allergy/AdvReac Type Severity Reaction Status Date / Time No Known Allergies Allergy Verified 08/06/24 09:31 Exam Data for Last 24 hours Vital signs and Labs for Last 24 Hours: Pulse Resp BP Pulse Ox O2 Del Method 66 18 149/86 H 96 Room Air 11/12/24 11:00 11/12/24 11:00 11/12/24 11:00 11/12/24 11:00 11/12/24 11:00 I & O for Last 24 hours: Intake & Output 11/09/24 11/10/24 11/11/24 11/12/24 23:59 23:59 23:59 23:59 Weight 220 lb Constitutional Constitutional: no acute distress *Routine HEENT Exam Head: Present normocephalic and atraumatic Eye: Present PERRL ENT: Present mucous membranes moist *Routine Neck Exam Neck: Present supple *Routine Respiratory Exam Respiratory: Present CTA bilaterally *Routine Cardiovascular Exam Cardiovascular: Present RRR *Routine Abdominal Exam Abdominal: Present soft *Routine Rectal Exam Rectal:: deferred *Routine Genitalia Exam Genitalia:: deferred Routine Back/Spine/Pelvis Exam Back/Spine: Present pain with flexion *Routine Skin Exam Skin: Present intact and warm *Routine Neurological Exam Neurological: Present alert and oriented X3 Routine Psychiatric Exam Psychiatric: Present normal affect and normal thought process Assessment and Plan *Assessment and plan (1) Lumbar radiculopathy: Status: Acute Category: Medical Code(s): M54.16 - Radiculopathy, lumbar region (2) Degenerative disc disease: Status: Acute Category: Medical Plan Patient has been instructed to contact the clinic with any concerns before the next appointment. Dr. Ryan has reviewed this note and agrees with this plan of care. This note was dictated using voice recognition software and make contain errors or omissions. All injections are used with Lidocaine, Bupivacaine and dexamethasone. Occasionally urine drug screen is needed to verify patient's compliance with our office pain contract. This is ordered based off specific treatments related to chronic pain with the potential to abuse certain medications.
--- NOTE | 2024-11-12 11:35 | EXP.PAIN.PRO ---
Procedure Date: 11/12/24 Time: 11:35 Anesthesiologist:: Katherin Devlin APRN Complications:: None Pre-procedure Diagnosis:: Degenerative disc disease of lumbar spine with lumbar radiculopathy symptoms, chronic pain syndrome Post-procedure Diagnosis:: Same Indications for Procedure:: Patient is a pleasant 54-year-old male who presents today for intrathecal refill and reprogram. Today he rates his pain at a 5 out of 10. He denies any new falls or injuries. He does state he would like to proceed forward with additional injections for his SI joint pain. Patient had been discussed this option several months ago but wanted to hold off due to just recently having his pump changed out. Today he does state the pain has continued to be very bothersome and states it is all across his low back on the sides and going into his bilateral hips. He denies any pain into his lower extremities. He does state the pain is interfering with his ability perform activities of daily living such as cooking and cleaning. Patient has had SI injections in the past that did provide significant relief. Patient is currently managed with Dilaudid 3 mg/mL with a daily dose of 1.0399 mg/day. He denies any side effects. His Anant has been reviewed and is appropriate. Physical Exam: General: Alert and oriented x3, no acute distress, pleasant and cooperative Lungs: Respirations even and unlabored, symmetrical chest expansion Eyes: PERRL Musculoskeletal: Flexion and extension of lumbar [spine] somewhat guarded secondary to pain, [antalgic gait noted] point tenderness along bilateral SIs with positive bilateral Leila's, Cecille's, Gaenslen's, compression and distraction exam Neurological: Speech clear, no gross sensory deficit Procedure Details:: Informed consent was obtained and the risk and benefits of the procedure were explained to the patient. The patient had noninvasive monitoring placed including noninvasive blood pressure cuff and pulse oximeter. Patient's pump was interrogated. The area over the pump was cleansed with chlorhexidine as a cleansing solution. In sterile fashion the pump was accessed with a 22-gauge needle. Approximately 7 mls of the pump solution was removed and discarded appropriately. The pump was then refilled with 20 mL's of Dilaudid 3 mg/mL. The needle was withdrawn and a bandage was placed over the puncture site. The infusion rate was reprogrammed and continued at its current dosage. The patient tolerated well with no complication. Plan and Disposition:: Patient tolerated the procedure well with no complications and was discharged neurologically intact. Patient is experiencing worsening pain in his bilateral hips with limited range of motion and point tenderness along his bilateral SI joints and a positive Leila's, Cecille's, Gaenslen's, compression and distraction exam. I did discuss with the patient that I do believe he would benefit from bilateral SI injections. Risk and benefits were discussed with patient and he would like to proceed forward with this plan of care. Patient has tried and failed conservative therapy including oral medication, heat and ice, topicals, at home stretching exercise for longer than 12 weeks. Patient is on injections in the past that did provide significant improvements. Patient has not had these for some time however did state he has previously gotten at least 80% improvement lasting longer than 3 months.. We will submit to insurance for bilateral SI injections under fluoroscopy. This will be therapeutic injections with less than 1.5 mL solution to be injected. Patient will also be given a pump refill date. We will see the patient back in the clinic at the next intrathecal refill. Patient has been instructed to contact the clinic with any concerns before the next appointment. Dr. Ryan has reviewed this note and agrees with this plan of care. This note was dictated using voice recognition software and make contain errors or omissions. -- It Is medically necessary for this patient to continue to have their intrathecal pump refilled at regular intervals. This patient had an intrathecal pain pump implanted after meeting criteria of chronic intractable pain for greater than 3 months and failing conservative treatments. Patient has committed and been compliant to the treatment plan and all planned follow up care. Since implantation of the intrathecal pain pump, the patient has had decreased pain and been more functional. Oral medications have been reduced including intake of oral opioids. Patient continues to do well with intrathecal therapy with decrease in pain symptoms and increase in functional status. Stopping intrathecal medications can lead to life threatening withdrawal, seizures, cardiac arrest, severe pain, and possible . Pumps that are not refilled at regular intervals can be damages and cause and need for replacement. We continually titrate dose and concentration to optimize pain relief and function. We are limited in concentration for certain drugs to safely deliver medications through the pump and stay within the recommendations from the Polyanalgesic Consensus Committee Guidelines. Depending on dose and concentration these pumps may need to be refilled sooner than 3 months as we titrate. A UDS is needed to verify patient's compliance with our office pain contract. This is ordered based off specific treatments related to chronic pain with the potential to abuse certain medications.
[2024-11-12 11:42] VITALS: BP 128/78; PULSE 67; RESP 18; O2SAT 96
[2024-11-12 11:53] VITALS: BP 135/78; PULSE 70; RESP 16; O2SAT 96
== END 2024-11-12 11:53 | disposition home or self-care (01) ==
PROVIDERS: Visit Provider Nurse Practitioner Family
DX: Z45.1 Encounter for adjustment and management of infusion pump (principal); M51.16 Intervertebral disc disorders with radiculopathy, lumbar region; G89.4 Chronic pain syndrome; E11.9 Type 2 diabetes mellitus without complications; K21.9 Gastro-esophageal reflux disease without esophagitis; E78.5 Hyperlipidemia, unspecified; Z79.84 Long term (current) use of oral hypoglycemic drugs; Z79.899 Other long term (current) drug therapy
CPT/HCPCS: 62370

== ENCOUNTER → 2024-12-10 13:12 | Day surgery (SDC) | payer MEDICARE, SELFPAY ==
--- NOTE | 2024-12-10 13:24 | P.HP_ITS ---
History of Present Illness *Admission Date: 12/10/24 *Reason for visit:: Intrathecal refill; DDD *History of present illness: Same [facility] Disclaimer: The information contained in this section may have been updated after the patient was seen, as this information can be updated by other users. Medical History HLD (hyperlipidemia) Degenerative disc disease Lumbar radiculopathy GERD (gastroesophageal reflux disease) Diabetes Surgical History History of back surgery Family History Other No significant family history Social History Smoking Status: Current every day smoker alcohol intake: never substance use type: denies use current occupational status: other Travel in the last 8 weeks?: None Have you lived/traveled outside [place] in past 30 days?: No Contact w/someone who lives/traveled outside [place] past 30 days?: No Exposure to someone with infectious disease in past 14 days?: No Do you have a fever (greater than 100.4 F or 38 C)?: No Have you tested positive for COVID-19?: No Exposed to someone with COVID-19 in past 14 days?: No Do you have a sore throat?: No Do you have a cough?: No Do you have any weakness?: No Do you have any diarrhea?: No Are you experiencing any unusual bleeding?: No Do you have any muscle aches/pain?: No Do you have any abdominal pain?: No Are you experiencing loss of taste or smell?: No Other Medical History Have you received the Flu Vaccine for this season: No Have you received the Pneumonia Vaccine: No Meds Home Medications and Allergies Home Medications ?Medication ?Instructions ?Recorded ?Confirmed ?Type gabapentin 300 mg capsule 300 mg PO DAILY 07/30/24 History levocetirizine 5 mg tablet 5 mg PO DAILY 07/30/24 07/09/12 History metformin 750 mg tablet,extended 750 mg PO DAILY Diabe rehan 07/30/24 11/12/24 History release 24 hr rosuvastatin 10 mg tablet 10 mg PO DAILY Cholesterol 0 07/30/24 11/12/24 History New Prescriptions to Start Prescriptions: Allergies Allergy/AdvReac Type Severity Reaction Status Date / Time No Known Allergies Allergy Verified 08/06/24 09:31 Exam *Routine HEENT Exam Head: Present normocephalic and atraumatic Eye: Present PERRL ENT: Present mucous membranes moist *Routine Neck Exam Neck: Present supple *Routine Respiratory Exam Respiratory: Present CTA bilaterally *Routine Cardiovascular Exam Cardiovascular: Present RRR *Routine Abdominal Exam Abdominal: Present soft *Routine Rectal Exam Rectal:: deferred *Routine Genitalia Exam Genitalia:: deferred Routine Back/Spine/Pelvis Exam Back/Spine: Present pain with flexion *Routine Skin Exam Skin: Present intact and warm *Routine Neurological Exam Neurological: Present alert and oriented X3
--- NOTE | 2024-12-10 13:25 | EXP.PAIN.PRO ---
Procedure Date: 12/10/24 Time: 13:51 Anesthesiologist:: Katherin Devlin APRN Complications:: None Pre-procedure Diagnosis:: Degenerative disc disease of the lumbar spine with lumbar radiculopathy symptoms, chronic pain syndrome Post-procedure Diagnosis:: Same Indications for Procedure:: Patient is a pleasant 54-year-old male who presents today for intrathecal refill and reprogram. He rates his pain today a 5 out of 10. He denies any new trauma or injury. He is scheduled for injections coming up on Friday there in his low back and hips of the SI joints. Patient is very hopeful that this will improve the pain he has been experiencing and that he might be able to come down off his dosage of the pump a little bit. Patient is currently managed with Dilaudid 3 mg/mL with a daily dose of 1.0399 mg/day. He denies any side effects. His Anant has been reviewed and is appropriate. Physical Exam: General: Alert and oriented x3, no acute distress, pleasant and cooperative Lungs: Respirations even and unlabored, symmetrical chest expansion Eyes: PERRL Musculoskeletal: Flexion and extension of lumbar [spine] somewhat guarded secondary to pain, [antalgic gait noted] Neurological: Speech clear, no gross sensory deficit Procedure Details:: Informed consent was obtained and the risk and benefits of the procedure were explained to the patient. The patient had noninvasive monitoring placed including noninvasive blood pressure cuff and pulse oximeter. Patient's pump was interrogated. The area over the pump was cleansed with chlorhexidine as a cleansing solution. In sterile fashion the pump was accessed with a 22-gauge needle. Approximately 9.5 mls of the pump solution was removed and discarded appropriately. The pump was then refilled with 20 mL's of Dilaudid 3 mg/mL. The needle was withdrawn and a bandage was placed over the puncture site. The infusion rate was reprogrammed and continued at its current dosage. The patient tolerated well with no complication. Plan and Disposition:: Patient tolerated the procedure well with no complications and was discharged neurologically intact. Patient will return to clinic on or before their next intrathecal refill date. We will see the patient back in the clinic at the next intrathecal refill. Patient has been instructed to contact the clinic with any concerns before the next appointment. Dr. Ryan has reviewed this note and agrees with this plan of care. This note was dictated using voice recognition software and make contain errors or omissions. -- It Is medically necessary for this patient to continue to have their intrathecal pump refilled at regular intervals. This patient had an intrathecal pain pump implanted after meeting criteria of chronic intractable pain for greater than 3 months and failing conservative treatments. Patient has committed and been compliant to the treatment plan and all planned follow up care. Since implantation of the intrathecal pain pump, the patient has had decreased pain and been more functional. Oral medications have been reduced including intake of oral opioids. Patient continues to do well with intrathecal therapy with decrease in pain symptoms and increase in functional status. Stopping intrathecal medications can lead to life threatening withdrawal, seizures, cardiac arrest, severe pain, and possible . Pumps that are not refilled at regular intervals can be damages and cause and need for replacement. We continually titrate dose and concentration to optimize pain relief and function. We are limited in concentration for certain drugs to safely deliver medications through the pump and stay within the recommendations from the Polyanalges[employer] Consensus Committee Guidelines. Depending on dose and concentration these pumps may need to be refilled sooner than 3 months as we titrate. A UDS is needed to verify patient's compliance with our office pain contract. This is ordered based off specific treatments related to chronic pain with the potential to abuse certain medications.
[2024-12-10 13:31] VITALS: BP 144/84; PULSE 55; RESP 18; O2SAT 97; BMI 30.9
[2024-12-10 13:45] VITALS: BP 122/78; PULSE 83; RESP 18; O2SAT 97
[2024-12-10 13:54] VITALS: BP 150/84; PULSE 71; RESP 18; O2SAT 98
== END | disposition home or self-care (01) ==
PROVIDERS: Visit Provider Nurse Practitioner Family
DX: Z45.1 Encounter for adjustment and management of infusion pump (principal); G89.4 Chronic pain syndrome; M51.16 Intervertebral disc disorders with radiculopathy, lumbar region; F17.200 Nicotine dependence, unspecified, uncomplicated; E78.5 Hyperlipidemia, unspecified; E11.9 Type 2 diabetes mellitus without complications; Z79.84 Long term (current) use of oral hypoglycemic drugs
CPT/HCPCS: 62370